=== PATIENT | male | born 1950 | race Caucasian/White ===

== ENCOUNTER 2024-02-08 09:14 | Outpatient (AMB) | payer MEDICARE, SELFPAY ==
[2024-02-08 09:29] VITALS: BP 126/60; PULSE 51; O2SAT 96; BMI 28.3
--- NOTE | 2024-02-08 09:29 | A.OFFVIS_ITS ---
Vital Signs 02/08/24 09:29 Height 5 ft 2 in Weight 154 lb 12.232 oz BMI 28.3 BP 126/60 Blood Pressure Location Lt brachial Position Sitting Pulse 51 Pulse Source Pulse Oximeter Pulse Oximetry (%) 96 Oxygen Delivery Method Room Air Intake Visit Reasons: RA/MR Recieved/lm Intake Note: Patient presents today for follow up on RA. He would like to renew Prednisone for his gout. He states it's both feet, whi9ch are feeling good today, but comes and goes. Allergies erythromycin base Allergy (Mild, Verified 02/08/24 09:36) Unknown ticlopidine [From Ticlid] Allergy (Mild, Verified 02/08/24 09:36) Rash cotrast dye Allergy (Severe, Uncoded 02/08/24 09:36) Anaphylaxis bee sting Allergy (Intermediate, Uncoded 02/08/24 09:36) Anaphylaxis HPI Comments Details: He is doing well. He is currently participating in a clinical trial with a cardiac device in place. He has improved angina and has been able to travel. His quality of life has improved substantially since participating in the clinical trial. He denies any recent flares of rheumatoid arthritis. He has been working on projects and feels well doing them. He had a gout flare causing swelling in his right 1st toe. Subsequently he has developed a nodule on his big toe. No other joints were involved. Review of Systems Const All systems reviewed & are unremarkable except as noted in HPI and below Physical Exam Vital Signs: Last Vital Signs Pulse 51 02/08/24 09:29 BP 126/60 02/08/24 09:29 Pulse Ox 96 02/08/24 09:29 Oxygen Delivery Method Room Air 02/08/24 09:29 BMI result Body Mass Index 28.3 Const Other: General: Comfortable CVS: RRR Respiratory: clear to auscultation bilaterally. Good respiratory effort Skin: No lesions seen MSK: No tenderness of any joints. No synovitis present. Shoulder abduction 110 degrees bilaterally. Good internal external rotation of shoulders. Knee flexion 120 degrees bilaterally. 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 No erythema. Assessment & Plan Assessment & Plan (1) Rheumatoid arthritis: Comment: 73-year-old male with history of seronegative rheumatoid arthritis initially presenting as PMR mimic with right MTP synovitis on initial presentation. He continued to develop polyarthralgias left MCP synovitis when prednisone was tapered when he was being treated for PMR initially. Hence swelling resolved on low-dose prednisone. He developed hyperglycemia (history of IDDM) on low-dose prednisone and was able to adjust via insulin pump. Methotrexate started August 2020 to 11/06/2021 due to pneumonitis on CT chest likely due to methotrexate toxicity. Humira started 06/06/2021 to 07/07/2021 but discontinued due to pneumonia and shingles. He has remained on hydroxychloroquine since 01/06/2022. He is also controlled on Actemra subcutaneous injection weekly. He remains in remission. He has been very functional also with recent possible placement of a device through involvement in a clinical trial for his severe cardiovascular disease. Code(s): M06.9 - Rheumatoid arthritis, unspecified Category: Medical Plan: Continue hydroxychloroquine 300 mg daily. He he reports he has an upcoming appointment for hydroxychloroquine surveillance. Continue Actemra 162 mg every other week Labs for drug monitoring on high-risk medication due today (2) Gout: Comment: with kian (new).hx CKD. 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 He is on allopurinol 100 mg daily. [facility] he should have been on allopurinol 300 mg daily. Due to history of CKD, we will need to up titrate slowly. Code(s): M10.9 - Gout, unspecified Category: Medical Plan: We will check uric acid level today and monthly with goal to up titrate allopurinol slowly Will obtain labs for drug monitoring this visit (3) Other halfway (current) drug therapy: Code(s): Z79.899 - Other exterminator helper (current) drug therapy Category: Medical Plan: See above (4) ILD (interstitial lung disease): Comment: He follows up with [facility] pulmonology Code(s): J84.9 - Interstitial pulmonary disease, unspecified Category: Medical Plan: I will obtain last pulmonology note Orders: Orders 2 Alanine Aminotransferase Today M06.9 - Rheumatoid arthritis, unspecified, Z79.899 - Other halfway (current) drug therapy Creatinine Today M06.9 - Rheumatoid arthritis, unspecified, Z79.899 - Other halfway (current) drug therapy Erythrocyte Sedimentation Rate Today M06.9 - Rheumatoid arthritis, unspecified T Spot TB Today M06.9 - Rheumatoid arthritis, unspecified, M10.9 - Gout, unspecified, Z79.899 - Other halfway (current) drug therapy Uric Acid 02/08/24 M06.9 - Rheumatoid arthritis, unspecified, Z79.899 - Other exterminator helper (current) drug therapy Uric Acid Today M06.9 - Rheumatoid arthritis, unspecified, Z79.899 - Other exterminator helper (current) drug therapy Uric Acid 04/08/24 M06.9 - Rheumatoid arthritis, unspecified, Z79.899 - Other exterminator helper (current) drug therapy Uric Acid 06/07/24 M06.9 - Rheumatoid arthritis, unspecified, Z79.899 - Other halfway (current) drug therapy Uric Acid 07/07/24 M06.9 - Rheumatoid arthritis, unspecified, Z79.899 - Other halfway (current) drug therapy Uric Acid 08/06/24 M06.9 - Rheumatoid arthritis, unspecified, Z79.899 - Other halfway (current) drug therapy Uric Acid 09/05/24 M06.9 - Rheumatoid arthritis, unspecified, Z79.899 - Other halfway (current) drug therapy Uric Acid 11/04/24 M06.9 - Rheumatoid arthritis, unspecified, Z79.899 - Other exterminator helper (current) drug therapy Uric Acid 12/04/24 M06.9 - Rheumatoid arthritis, unspecified, Z79.899 - Other halfway (current) drug therapy C Reactive Protein Today M06.9 - Rheumatoid arthritis, unspecified, Z79.899 - Other exterminator helper (current) drug therapy Aspartate Amino Transferase Today M06.9 - Rheumatoid arthritis, unspecified, Z79.899 - Other halfway (current) drug therapy Complete Blood Count Auto Diff Today M06.9 - Rheumatoid arthritis, unspecified, Z79.899 - Other halfway (current) drug therapy Hepatitis B,C Profile Today M06.9 - Rheumatoid arthritis, unspecified, Z79.899 - Other halfway (current) drug therapy Uric Acid Today M06.9 - Rheumatoid arthritis, unspecified, Z79.899 - Other exterminator helper (current) drug therapy Uric Acid 05/08/24 M06.9 - Rheumatoid arthritis, unspecified, Z79.899 - Other halfway (current) drug therapy Uric Acid 10/05/24 M06.9 - Rheumatoid arthritis, unspecified, Z79.899 - Other halfway (current) drug therapy Uric Acid 01/03/25 M06.9 - Rheumatoid arthritis, unspecified, Z79.899 - Other exterminator helper (current) drug therapy Lipid Panel Today M06.9 - Rheumatoid arthritis, unspecified, Z79.899 - Other halfway (current) drug therapy Medications: New Actemra (tocilizumab) Inject SQ every other week PA needed 162 mg (0.9 mL) subcut Q2W 1.8 mL 2RF NS Coding Level of Care Code Est Pt Level 4 (39103) Complex EM visit Add On G2211 Diagnoses Rheumatoid arthritis M06.9 Gout M10.9 Other exterminator helper (current) drug therapy Z79.899 ILD (interstitial lung disease) J84.9
== END 2024-02-08 10:21 | disposition home or self-care (01) ==
PROVIDERS: PCP Nurse Practitioner Family; Visit Provider Internal Medicine Rheumatology
DX: M06.9 Rheumatoid arthritis, unspecified (principal); M10.9 Gout, unspecified; Z79.899 Other long term (current) drug therapy; J84.9 Interstitial pulmonary disease, unspecified
CPT/HCPCS: 99214; G2211

== ENCOUNTER → 2024-02-08 09:14 | Outpatient (BNVA) | payer MEDICARE, SELFPAY | PROVIDERS: PCP Nurse Practitioner Family; Visit Provider Internal Medicine Rheumatology | DX: M06.9 Rheumatoid arthritis, unspecified (principal); M10.9 Gout, unspecified; J84.9 Interstitial pulmonary disease, unspecified; Z95.818 Presence of other cardiac implants and grafts; Z79.899 Other long term (current) drug therapy | CPT/HCPCS: 99212 ==

== ENCOUNTER 2024-02-12 08:27 | Outpatient (REF) | payer MEDICARE, SELFPAY ==
[2024-02-12 11:01] LABS: MANUAL DIFF FLAG NO
[2024-02-12 11:39] LABS: Basophils Percent Auto 0.5 % (0-2); Eosinophils Absolute Auto 0.1 X10*3/uL (0.0-0.4); Eosinophils Percent Auto 1.3 % (0-4); Hematocrit 40.3 % (42.0-52.0); Hemoglobin 13.8 g/dl (14.0-18.0); Imm Gran Abs Auto 0.04 X10*3/uL (0.00-0.03); Imm Gran Pct Auto 0.6 % (0.0-0.4); Lymphocytes Absolute Auto 1.2 X10*3/uL (1.2-4.9); Lymphocytes Percent Auto 19.9 % (20-40); Mean Corpuscular HGB Conc 34.2 g/dl (31.0-36.0); Mean Corpuscular Hemoglobin 30.9 pg (27.0-33.0); Mean Corpuscular Volume 90.2 fL (80.0-98.0); Mean Platelet Volume 11.7 fL (9.4-12.4); Monocytes Absolute Auto 0.5 X10*3/uL (0.1-1.2); Monocytes Percent Auto 8.4 % (2-11); Neutrophils Absolute Auto 4.3 x10*3/uL (2.0-8.3); Neutrophils Percent Auto 69.3 % (45-73); Platelet Count 160 X10*3/uL (160-400); Red Blood Count 4.47 X10*6/uL (4.60-5.80); Red Cell Distribution Width 12.9 % (11.0-16.0); White Blood Count 6.2 X10*3/uL (4.8-10.8)
[2024-02-12 11:53] LABS: Alanine Aminotransferase 39 U/L (0-40); Aspartate Amino Transferase 38 U/L (5-37); C Reactive Protein < 0.04 mg/dL (< or = 0.50); Cholesterol 110 mg/dL (<200); Estimated Glomerular Filt Rate 45; HDL Cholesterol 30 mg/dL (>40); LDL Cholesterol Calculated 60 mg/dL (<100); Triglycerides 100 mg/dL (<150)
[2024-02-12 12:15] LABS: HBS Num1 29.77 mIU/mL (0-7.99); HBc Num1 0.05 S/CO (0.00-0.79); HBsAGNum1 0.34 S/CO (0.00-0.99); Hepatitis B Core Antibody Nonreactive (Nonreactive); Hepatitis B Surface Antigen Negative (Negative); ~HepC Num1 0.08 S/CO (0.00-0.79); ~Hepatitis B Surface Antibody REACTIVE (Nonreactive); ~Hepatitis C Antibody Nonreactive (Nonreactive)
[2024-02-12 12:29] LABS: Erythrocyte Sedimentation Rate 10 MM/HR (0-15)
[2024-02-15 03:54] LABS: TS Negative Control Passed; TS Panel A 0; TS Panel B 1; TS Positive Control Passed; TSpotTB Negative (Negative)
== END 2024-02-12 08:28 | disposition home or self-care (01) ==
LOC: HO.WFDLDS 08:27
PROVIDERS: Visit Provider Internal Medicine Rheumatology
DX: M06.9 Rheumatoid arthritis, unspecified (principal); M10.9 Gout, unspecified; Z79.899 Other long term (current) drug therapy
CPT/HCPCS: 36415; 80061; 82565; 84450; 84460; 84550; 85025; 85652; 86140; 86481; 86704; 86706; 86803; 87340

== ENCOUNTER 2024-03-05 13:13 | Outpatient (REF) | payer MEDICARE, SELFPAY ==
[2024-03-05 18:23] LABS: Alanine Aminotransferase 39 U/L (0-40); Aspartate Amino Transferase 38 U/L (5-37); Uric Acid 5.2 mg/dL (3.4-7.0)
== END 2024-03-05 13:14 | disposition home or self-care (01) ==
LOC: HO.WFDLDS 13:13
PROVIDERS: Visit Provider Internal Medicine Rheumatology
DX: E11.42 Type 2 diabetes mellitus with diabetic polyneuropathy (principal); Z79.899 Other long term (current) drug therapy; M06.9 Rheumatoid arthritis, unspecified
CPT/HCPCS: 36415; 84450; 84460; 84550

== ENCOUNTER 2024-03-29 11:39 | Outpatient (REF) | payer MEDICARE, SELFPAY ==
[2024-03-29 14:00] LABS: MANUAL DIFF FLAG NO
[2024-03-29 14:05] LABS: Basophils Absolute Auto 0.1 X10*3/uL (0.0-0.2); Basophils Percent Auto 0.6 % (0-2); Eosinophils Absolute Auto 0.1 X10*3/uL (0.0-0.4); Eosinophils Percent Auto 1.4 % (0-4); Hematocrit 40.1 % (42.0-52.0); Hemoglobin 13.9 g/dl (14.0-18.0); Imm Gran Abs Auto 0.05 X10*3/uL (0.00-0.03); Imm Gran Pct Auto 0.6 % (0.0-0.4); Lymphocytes Absolute Auto 1.6 X10*3/uL (1.2-4.9); Lymphocytes Percent Auto 19.1 % (20-40); Mean Corpuscular HGB Conc 34.7 g/dl (31.0-36.0); Mean Corpuscular Hemoglobin 31.1 pg (27.0-33.0); Mean Corpuscular Volume 89.7 fL (80.0-98.0); Mean Platelet Volume 11.3 fL (9.4-12.4); Monocytes Absolute Auto 0.8 X10*3/uL (0.1-1.2); Monocytes Percent Auto 9.2 % (2-11); Neutrophils Absolute Auto 5.8 x10*3/uL (2.0-8.3); Neutrophils Percent Auto 69.1 % (45-73); Platelet Count 178 X10*3/uL (160-400); Red Blood Count 4.47 X10*6/uL (4.60-5.80); Red Cell Distribution Width 13.5 % (11.0-16.0); White Blood Count 8.4 X10*3/uL (4.8-10.8)
[2024-03-29 14:16] LABS: Uric Acid 4.7 mg/dL (3.4-7.0)
[2024-03-29 14:21] LABS: Blood Urea Nitrogen 28 mg/dL (9-16); Calcium 9.4 mg/dL (8.4-10.2); Estimated Glomerular Filt Rate 42
[2024-03-29 14:34] LABS: Parathyroid Hormone Intact 153.2 pg/mL (8.7-77.1)
[2024-03-29 14:37] LABS: Creatinine Urine 98.05 mg/dL; Microalbum/Creatinine Ratio Ur 108.1 ug/mg cr (<30); Total Protein Urine Random 22 mg/dL (<12)
[2024-03-29 14:40] LABS: Vitamin D 25-OH Total 24.6 ng/mL (>30)
== END 2024-03-29 11:40 | disposition home or self-care (01) ==
LOC: HO.WFDLDS 11:39
PROVIDERS: Internal Medicine Nephrology; Visit Provider Internal Medicine Rheumatology
DX: M06.9 Rheumatoid arthritis, unspecified (principal); Z79.899 Other long term (current) drug therapy; N18.32 Chronic kidney disease, stage 3b
CPT/HCPCS: 36415; 82043; 82306; 82310; 82565; 82570; 83970; 84156; 84520; 84550; 85025

== ENCOUNTER 2024-05-08 15:20 | Outpatient (REF) | payer MEDICARE, SELFPAY ==
--- OUTSIDE RECORDS SUMMARY | 2024-05-08 15:23 | XMS_ITS | Encounter Summary ---
Author Organization [facility], Address [address] [place] [address] Phone Care Team Providers Care Plant Operations Vice President Name Role Phone Christy Darden SHELLFISH CHECKER Primary Care Provider Encounter Details Date Type Department Care Team (Late st Contact Info) Description 02/28/2022 Documentation Only [facility], [address] [place] [phone] Christy Darden, DAI [address] [place] [address] Social History Tobacco Use Types Packs/Day Years Used Date Smoking Tobacco: Never Assessed Sex and Gender Information Value Date Recorded Sex Assigned at Male 03/23/2024 8:51 AM EST Legal Sex Male 2:33 PM EDT Gender Identity Male 03/23/2024 8:51 AM EST Sexual Orientation Straight 03/23/2024 8: 51 AM EST documented as of this encounter Plan of Treatment Upcoming Encounters Date Type Department Care Team (Late st Contact Info) Description 09/23/2024 8:30 AM EDT Office Visit [facility] [address] [phone] Jacqueline Mckenzie ARNP [address] [address] documented as of this encounter Visit Diagnoses Not on filedocumented in this encounter Care Teams Plant Operations Vice President Relationship Specialty Start Date End Date Christy Darden NP [address] [place] [address] PCP - General Nurse Practitioner 02/28/22 documented as of this encounter
--- OUTSIDE RECORDS SUMMARY | 2024-05-08 15:23 | XMS_ITS | Encounter Summary ---
Author Organization [facility], Address [address] [place] [address] Phone Care Team Providers Care Skip Hoist Engineer Name Role Phone Christy Darden NP Primary Care Provider Encounter Details Date Type Department Care Team (Late st Contact Info) Description 03/07/2022 Documentation Only [facility], [address] [facility] [place] [phone] Maciej Sauceda MD [address] [facility] [place] [phone] Social History Tobacco Use Types Packs/Day Years [...] Visit [facility] [address] [phone] Jacqueline Mckenzie ARNP [address] [phone] documented as of this encounter Visit Diagnoses Not on filedocumented in this encounter Care Teams Skip Hoist Engineer Relationship Specialty Start Date End Date Christy Darden NP [address] [place] [address] PCP - General Nurse Practitioner 02/28/22 documented as of this encounter
--- OUTSIDE RECORDS SUMMARY | 2024-05-08 15:23 | XMS_ITS | Clinical Summary ---
Author Organization [facility] Address [address] [address] Phone Care Team Providers Care Economics Instructor Name Role Phone Christy Darden NP Primary Care Provider Allergies Active Allergy Reactions Criticality Noted Date Comments Bee Venom Anaphylaxis High 03/07/2022 Other reaction(s): anaphalaxis Erythromycin Other (see comments) 05/19/2017 Eye swelling Other reaction(s): eye swelling Worsened pink eye Iodinated Contrast Media Anaphylaxis High 03/07/2022 Other reaction(s): anaphalaxis Other Anaphylaxis High 05/19/2017 Bee stings Ticlopidine Rash Low 03/07/2022 Other reaction(s): rash Medications allopurinol (ZYLOPRIM) 100 MG tablet Take 100 mg by mouth 1 (one) time each day 2 Active Eliquis 5 MG tablet 2 Active atorvastatin (LIPITOR) 80 MG tablet Take 80 mg by mouth every night 2 Active clopidogrel (PLAVIX) 75 MG tablet Take 75 mg by mouth 1 (one) time each day 2 Active hydroxychloroqui ne (PLAQUENIL) 200 MG tablet Take 150 mg by mouth 1 (one) time each day 2 Active HumaLOG 100 UNIT/ML solution 2 Active nitroglycerin (NITROSTAT) 0.4 MG SL tablet TAKE 1 TABLET BY MOUTH EVERY 5 MINUTES NEEDED FOR CHEST PAIN 2 Active acetaminophen (TYLENOL) 325 MG tablet Take by mouth every 6 (six) hours if needed for mild pain Active amLODIPine (NORVASC) 10 MG tablet Take 10 mg by mouth 1 (one) time each day Active EPINEPHrine (EPIPEN) 0.3 MG/0.3ML injection syringe Inject 1 Syringe into the shoulder, thigh, or buttocks 1 (one) time Active Matlock-3 Fatty Acids (Fish Oil) 1200 MG capsule delayed-release Take by mouth Active carvedilol (COREG) 12.5 MG tablet Take 1 tablet (12.5 mg total) by mouth in the morning and 1 tablet (12.5 mg total) in the evening. Take with meals. 60 tablet 11 2 Active isosorbide mononitrate (IMDUR) 60 MG 24 hr tablet Take 90 mg by mouth 1 (one) time each day 3 Active ranolazine (RANEXA) 500 MG 12 hr tablet Take 500 mg by mouth 1 (one) time 4 Active eplerenone (INSPRA) 25 MG tablet Take 25 mg by mouth 1 (one) time each day Active Tocilizumab (Actemra) 162 MG/0.9ML solution prefilled syringe Inject under the skin Active Active Problems Problem Noted Date Diagnosed Date Arthropathy of spinal facet joint 01/06/2023 01/06/2023 Atherosclerosis of aorta 01/06/2023 023 Atrial fibrillation 01/06/2023 01/06/2023 Diverticular disease of colon 01/06/2023 Gastroesophageal reflux disease 01/06/2023 01/06/2023 Hemangioma of liver 01/06/2023 01/06/2023 Impingement syndrome of shoulder region 01/07/2001/06/2023 Impotence of organic origin 01/06/202312/19 Neurogenic claudication 01/06/2023 01/07/20 Obstructive sleep apnea syndrome 01/06/2023 01/06/2023 Rheumatoid arthritis 01/06/2023 01/06/2023 Sacroiliac disorder 01/06/2023 01/06/2023 Spermatocele 01/06/2023 01/06/2023 Tinea cruris 01/06/2023 01/06/2023 Type 2 diabetes mellitus with peripheral angiopa thy 01/06/2023 01/06/2023 Microalbuminuria 03/07/2022 Nephrolithiasis 03/07/2022 Cyst of kidney 03/07/2022 Type 2 diabetes mellitus with diabetic nephropat hy 03/07/2022 Stage 3 chronic kidney disease 03/07/2022 Hypertension 03/07/2022 Insulin pump present 05/12/2017 01/06/2023 Overview (01/06/2023): Started Omnipod and pump therapy 09/18/2014 Last Assessment & Plan: New insulin pump setting Time Basal Rates? Time ICR Time ISF Time Target IOB 12am 2.4u/hr 12am 7 12 am 30 12 am 100mg/dl 4hrs ?TOTAL 57.6u/day? We discussed insulin pump adjustments today, in particular Vince is encouraged to raise his basal rate to 2.4u/hr which is a 20% increase, he is also advised to monitor mealtime insulin response and adjust I:C ratio if needed or manually overestimate carb counts at meals to receive increase in dosage for a time Sensor glucose data reviewed, pattern of increase variability and higher readings overall, we discussed reasons for this and that this is likely temporary Advised to contact us with any questions regarding glucose patterns Metabolic syndrome 05/12/2017 01/06/2023 Type 2 diabetes mellitus 05/12/2017 023 Overview (01/06/2023): Last Assessment & Plan: A1c indicates excellent control overall but CGM patterns indicate worsened glucose control in the recent past, likely related to recent steroid therapy and increased stressors from recent surgery/health issues, Vince has also been less active Unfortunately Vince did not tolerate SGLT2i therapy in the past Vince is dealing with likely depressive symptoms related to his heart health issues, we discussed this at length today and how this may affect his motivation for activity, this may also affect diabetes self management though this does not seem to be the case at this time, Vince has discussed this with his PCP Vince is reassured that despite more recent elevations in glucose which are largely explainable, his overall control remains very good and today's adjustment to insulin infusion settings will hopefully help him return to more stable control Vince will return to meet with our team every 3 months as he is on insulin pump therapy and on Medicare, he is encouraged to reach out to me with any questions or concerns Coronary arteriosclerosis 08/24/20102022 Hyperlipidemia 08/24/2010 01/06/2023 Encounters Date Type Department Care Team Description 03/25/2024 9:15 AM EST Office Visit [facility] [address] [facility] [address] [place] [address] Jacqueline Mckenzie ARNP Stage 3b chronic kidney disease (HCC) (Primary Dx); Hypertension; Microalbuminuria; Nephrolithiasis 03/23/2024 Travel 02/18/2024 Orders Only [facility] [address] [place] [phone] Jacqueline Mckenzie ARNP Stage 3b chronic kidney disease (HCC); Hypertension from Last 3 Months Immunizations Name Administration Dates Next Due DTaP 09/07/2015 Hep A, Unspecified 04/28/2009 Hepatitis A 11/12/2009 Influenza (IM) Preservative Free 12/28/2015 Influenza Whole 01/20/2009 Influenza, Trivalent, Adjuvanted 12/24/2020,10/2018 Influenza, Unspecified 01/06/2022,2020,01/08/2020,01/08/2020 ,02/08/2019,03/27/2018,12/28/2015, 5 Pfizer SARS-COV-2 02/22/2021,07/15/2020,06/11/19 21 Pneumococcal Conjugate 13-Valent 03/31/2017 Pneumococcal Polysaccharide 03/14/2015 Shingrix 03/12/2013 Tdap 04/28/2009 Typhoid, Unspecified 04/28/2009 Family History Medical History Relation Comments Diabetes Father Heart disease Father Hypertension Father Cancer Mother Relation Status Comments Father Mother Social History Tobacco Use Types Packs/Day Years Used Date Smoking Tobacco: Never Smokeless Tobacco: Never Tobacco Cessation:Counseling Given: Not Answered Alcohol Use Standard Drinks/Week Comments Yes 0 (1 standard drink = 0.6 oz pur e alcohol) Sex and Gender Information Value Date Recorded Sex Assigned at Male 03/23/2024 8:51 AM EST Legal Sex Male 2:33 PM EDT Gender Identity Male 03/23/2024 8:51 AM EST Sexual Orientation Straight 03/23/2024 8: 51 AM EST Last Filed Vital Signs Vital Sign Reading Time Taken Comments Blood Pressure 114/60 03/25/2024 9:48 AM EST Pulse 49 03/25/2024 9:23 AM EST Temperature - - Respiratory Rate - - Oxygen Saturation 97% 03/25/2024 9:23 AM EST Inhaled Oxygen Concentration - - Weight 70.3 kg (155 lb) 03/25/2024 9:23 AM EST Height - - Body Mass Index - - Plan of Treatment Upcoming Encounters Date Type Department Care Team (Late st Contact Info) Description 09/23/2024 8:30 AM EDT Office Visit [facility] [address] [phone] Jacqueline Mckenzie ARNP [address] [phone] Health Maintenance Due Date Last Done Comments Colorectal Cancer Screening: Annual FOBT 2000 Colorectal Cancer Screening: Colonoscopy 2000 Colorectal Cancer Screening: Sigmoidoscopy 2000 Pneumococcal Vaccine: 65+ Years (3 of 3 - PPSV23 or PCV20) 03/14/2020 03/31/2017, 03/14/2015 Diabetes: Ophthalmology Exam 03/07/2022 Diabetes: Pedal Pulse Checked 03/07/2022 Diabetes: Sensory Foot Exam 03/07/2022 Diabetes: Visual Foot Exam 03/07/2022 Influenza Vaccine (#1) 2023 2, 12/24/2020, 12/24/2020, Additional history exists Diabetes: Hemoglobin A1C 06/02/2024 024, 12/09/2022, 02/18/2022 Hepatitis B Vaccine Aged Out No longe r eligible based on patient's age to complete this topic Insurance MEDICARE [facility] MEDICARE [facility] MEDICARE [facility] Care Teams Economics Instructor Relationship Specialty Start Date End Date Christy Darden NP [address] [place] [address] PCP - General Nurse Practitioner 02/28/22
--- OUTSIDE RECORDS SUMMARY | 2024-05-08 15:23 | XMS_ITS | Encounter Summary ---
Author Organization [facility], Address [address] [place] [address] Phone Care Team Providers Care Dry End Operator Name Role Phone Christy Darden BLANKING PRESS OPERATOR Primary Care Provider [phone] Encounter Details Date Type Department Care Team (Late st Contact Info) Description 02/28/2022 Documentation Only [facility], [address] [place] [phone] Christy Darden, DAI [address] [place] [address] Social History Tobacco Use Types Packs/Day Years [...] Visit [facility] [address] [phone] Jacqueline Mckenzie ARNP [address] [phone] documented as of this encounter Visit Diagnoses Not on filedocumented in this encounter Care Teams Dry End Operator Relationship Specialty Start Date End Date Christy Darden NP [address] [place] [address] PCP - General Nurse Practitioner 02/28/22 documented as of this encounter
--- OUTSIDE RECORDS SUMMARY | 2024-05-08 15:23 | XMS_ITS | Encounter Summary ---
Author Organization [facility], Address [address] [place] [address] Phone Care Team Providers Care Restaurant Shift Supervisor Name Role Phone Christy Darden ALIGNER BARREL AND RECEIVER Primary Care Provider Encounter Details Date Type Department Care Team (Late st Contact Info) Description 02/28/2022 Documentation Only [facility], [address] [place] [phone] Christy Darden, DAI [address] [place] [address] Social History Tobacco Use Types Packs/Day Years [...] Visit [facility] [address] [phone] Jacqueline Mckenzie ARNP [address] [phone] documented as of this encounter Visit Diagnoses Not on filedocumented in this encounter Care Teams Restaurant Shift Supervisor Relationship Specialty Start Date End Date Christy Darden NP [address] [place] [address] PCP - General Nurse Practitioner 02/28/22 documented as of this encounter
[2024-05-08 18:26] LABS: Uric Acid 4.3 mg/dL (3.4-7.0)
== END 2024-05-08 15:21 | disposition home or self-care (01) ==
LOC: HO.WFDLDS 15:20
PROVIDERS: Visit Provider Internal Medicine Rheumatology
DX: M06.9 Rheumatoid arthritis, unspecified (principal); Z79.899 Other long term (current) drug therapy
CPT/HCPCS: 36415; 84550

== ENCOUNTER 2024-05-14 09:15 | Outpatient (AMB) | payer MEDICARE, SELFPAY ==
--- NOTE | 2024-05-14 09:16 | A.OFFVIS_ITS ---
Vital Signs 05/14/24 09:17 Height 5 ft 2 in Weight 153 lb 3.54 oz BMI 28.0 BP 130/90 H Blood Pressure Location Lt brachial Position Sitting Pulse 55 Pulse Oximetry (%) 98 Intake Visit Reasons: 3 mo follow up Allergies erythromycin base Allergy (Mild, Verified 05/14/24 09:17) Unknown ticlopidine [From Ticlid] Allergy (Mild, Verified 05/14/24 09:17) Rash cotrast dye Allergy (Severe, Uncoded 02/08/24 09:36) Anaphylaxis bee sting Allergy (Intermediate, Uncoded 02/08/24 09:36) Anaphylaxis HPI HPI 3 mo follow up: Details: He had OCT exam few weeks ago 3 weeks. He has an appointment this PM for VF. He has swelling of his left CMC and triggering of left thumb for a few weeks. He has not been self medicating. He has a splint at home but has not been using it. Physical Exam Vital Signs: Last Vital Signs Pulse 55 05/14/24 09:17 BP 130/90 H 05/14/24 09:17 Pulse Ox 98 05/14/24 09:17 BMI result Body Mass Index 28.0 Const Other: General: Comfortable CVS: RRR Respiratory: clear to auscultation bilaterally. Good respiratory effort Skin: No lesions seen MSK: Left CMC synovitis and squaring present. Tender left CMC on palpation. Triggering of left thumb present with tenderness on palmar aspect of MCP without nodule palpated. Shoulder abduction 110 degrees bilaterally. Good internal external rotation of shoulders. Knee flexion 120 degrees bilaterally. He has tophus on his right interphalangeal joint of his 1st toe with slight erythema. Assessment & Plan Assessment & Plan (1) Rheumatoid arthritis: Comment: 73-year-old male with history of seronegative rheumatoid arthritis initially presenting as PMR mimic with right MTP synovitis on initial presentation. He continued to develop polyarthralgias left MCP synovitis when prednisone was tapered when he was being treated for PMR initially. Hence swelling resolved on low-dose prednisone. He developed hyperglycemia (history of IDDM) on low-dose prednisone and was able to adjust via insulin pump. Methotrexate started August 2020 to 11/06/2021 due to pneumonitis on CT chest likely due to methotrexate toxicity. Humira started 06/06/2021 to 07/07/2021 but discontinued due to pneumonia and shingles. He has remained on hydroxychloroquine since 01/06/2022. He is also controlled on Actemra subcutaneous injection weekly. He remains in remission on current regimen. Code(s): M06.9 - Rheumatoid arthritis, unspecified Category: Medical Qualifiers: Rheumatoid arthritis location: multiple sites Rheumatoid factor presence: without rheumatoid factor Qualified Code(s): M06.09 - Rheumatoid arthritis without rheumatoid factor, multiple sites Plan: Continue hydroxychloroquine 300 mg daily. He he reports he has an upcoming appointment for hydroxychloroquine surveillance visual field test this afternoon. He had abnormal OCT examined was diagnosed with glaucoma 04/25/2024. He will request clinic report from today's exam to be sent to my office. Continue Actemra 162 mg every other week Labs for drug monitoring on high-risk medication due today. I will be ordering fasting lipid panel next visit for drug monitoring on Actemra. Return to clinic in 3 months (2) Gout: Comment: with tophus right 1st toe. Risk factor: hx CKD. 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 He is on allopurinol 350 mg daily recently increased from 300 mg daily. He was having recurrent flares on allopurinol 300 mg daily despite uric acid acid level being 4.7 then 4.3. I will aim to have uric acid level goal closer to 4 for patient. Code(s): M10.9 - Gout, unspecified Category: Medical Qualifiers: Gout site: toe Gout etiology: due to renal impairment Chronicity: chronic Laterality: right Presence of tophus: with tophus Qualified Code(s): M1A.3711 - Chronic gout due to renal impairment, right ankle and foot, with top hus (tophi) Plan: Continue allopurinol 350 mg daily I will check uric acid level next visit Requesting recent labs that he had from [facility] Return to clinic in 3 months (3) Trigger finger of left thumb: Code(s): M65.312 - Trigger thumb, left thumb Category: Medical Plan: OT prescribed for exercise program and splinting at night (4) Arthritis of carpometacarpal (CMC) joint of left thumb: Comment: Discussed diagnosis, natural course and conservative management Code(s): M18.12 - Unilateral primary osteoarthritis of first carpometacarpal joint, left hand Category: Medical Plan: He will apply diclofenac gel 1% every 4-6 hours prn He will ice affected area twice a day Prescription for CMC brace given to patient OT prescribed Return to clinic in 3 months (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 PFT 05/2022 mild restrictive ventilatory defect, and mild diffusion capacity impairment consistent with ILD. 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 He follows up with [facility] proof operator Dr. Carlitos Phelan. Code(s): J84.9 - Interstitial pulmonary disease, unspecified Category: Medical Plan: He has an upcoming follow-up with pulmonology 05/2024. Orders: Orders Alanine Aminotransferase Today Z79.60 - ferry terminal supervisor (current) use of unspecified immunomodulators and immunosuppressants Aspartate Amino Transferase Today Z79.60 - skilled nursing (current) use of unspecified immunomodulators and immunosuppressants C Reactive Protein Today Z79.899 - Other group home (current) drug therapy XR foot RT min 3V Today M10.9 - Gout, unspecified OT Evaluation and Treatment Today M18.12 - Unilateral primary osteoarthritis of first carpometacarpal joint, left hand, M65.312 - Trigger thumb, left thumb Medications: New arm brace (Wrist Brace) As directed Left cmc spint, custom Dx: osteoarthritis left cmc 1 ea 0RF Refilled Actemra (tocilizumab) Inject SQ every other week PA approved. 162 mg (0.9 mL) subcut Q2W 1.8 mL 2RF NS Coding Level of Care Code Est Pt Level 4 (88801) Complex EM visit Add On G2211 Diagnoses Rheumatoid arthritis of multiple sites with negative rheumatoid factor M06.09 Rheumatoid arthritis location: multiple sites Rheumatoid factor presence: without rheumatoid factor Chronic gout due to renal impairment involving toe of right foot with tophus M1A.3711 Gout site: toe Gout etiology: due to renal impairment Chronicity: chronic Laterality: right Presence of tophus: with tophus Trigger finger of left thumb M65.312 Arthritis of carpometacarpal (CMC) joint of left thumb M18.12 Other intermodal owner operator truck driver (current) drug therapy Z79.899 ILD (interstitial lung disease) J84.9 Time Spent (min) 30
[2024-05-14 09:17] VITALS: BP 130/90; PULSE 55; O2SAT 98; BMI 28.0
--- OUTSIDE RECORDS SUMMARY | 2024-05-14 10:06 | XMS_ITS | Encounter Summary ---
Author Organization [facility] [place], Address [address] [place] [address] Phone Care Team Providers Care President Commercial Bank Name Role Phone Christy Darden TWISTER FRAME TENDER Primary Care Provider [phone] Encounter Details Date Type Department Care Team (Late st Contact Info) Description 02/28/2022 Documentation Only [facility] [place], [address] [place] [phone] Christy Darden, DAI [address] [place] [address] Social History Tobacco Use Types Packs/Day Years [...] Visit [facility] [address] [phone] Jacqueline Mckenzie ARNP [address] [address] documented as of this encounter Visit Diagnoses Not on filedocumented in this encounter Care Teams President Commercial Bank Relationship Specialty Start Date End Date Christy Darden NP [address] [place] [address] PCP - General Nurse Practitioner 02/28/22 documented as of this encounter
--- OUTSIDE RECORDS SUMMARY | 2024-05-14 10:07 | XMS_ITS | Encounter Summary ---
Author Organization [facility] [place], Address [address] [place] [address] Phone Care Team Providers Care Field Technical Assistant Name Role Phone Christy Darden SCRAPER MEAT Primary Care Provider Encounter Details Date Type Department Care Team (Late st Contact Info) Description 02/28/2022 Documentation Only [facility] [place], [address] [place] [phone] Christy Darden, DAI [address] [place] [address] Social History Tobacco Use Types Packs/Day Years [...] Visit [facility] [address] [phone] Jacqueline Mckenzie ARNP [address] [phone] documented as of this encounter Visit Diagnoses Not on filedocumented in this encounter Care Teams Field Technical Assistant Relationship Specialty Start Date End Date Christy Darden NP [address] [place] [address] PCP - General Nurse Practitioner 02/28/22 documented as of this encounter
--- OUTSIDE RECORDS SUMMARY | 2024-05-14 10:07 | XMS_ITS | Clinical Summary ---
Author Organization [facility] Address [address] [address] Phone Care Team Providers Care Learning And Development Intern Name Role Phone Christy Darden NP Primary [...] thigh, or buttocks 1 (one) time Active [place]-3 Fatty Acids (Fish Oil) 1200 MG capsule [...] Office Visit [facility] [address] [facility] [address] [place] [address] Jacqueline Mckenzie ARNP Stage 3b chronic kidney disease (HCC) (Primary Dx); Hypertension; Microalbuminuria; Nephrolithiasis 03/23/2024 Travel 02/18/2024 Orders Only [facility] [address] [place] [phone] Jacqueline Mckenzie ARNP Stage 3b chronic kidney [...] Visit [facility] [address] [phone] Jacqueline Mckenzie ARNP [address] [phone] Health Maintenance Due Date Last Done Comments [...] age to complete this topic Insurance MEDICARE [facility] MEDICARE [facility] MEDICARE [facility] Care Teams Learning And Development Intern Relationship Specialty Start Date End Date Christy Darden NP [address] [place] [address] PCP - General Nurse Practitioner 02/28/22
--- OUTSIDE RECORDS SUMMARY | 2024-05-14 10:07 | XMS_ITS | Encounter Summary ---
Author Organization [facility] [place], Address [address] [place] [address] Phone Care Team Providers Care Welding Machine Operator Arc Name Role Phone Christy Darden MANAGER PARKING Primary Care Provider Encounter Details Date Type Department Care Team (Late st Contact Info) Description 02/28/2022 Documentation Only [facility] [place], [address] [place] [phone] Christy Darden, DAI [address] [place] [address] Social History Tobacco Use Types Packs/Day Years [...] Visit [facility] [address] [phone] Jacqueline Mckenzie ARNP [address] [address] documented as of this encounter Visit Diagnoses Not on filedocumented in this encounter Care Teams Welding Machine Operator Arc Relationship Specialty Start Date End Date Christy Darden NP [address] [place] [address] PCP - General Nurse Practitioner 02/28/22 documented as of this encounter
--- OUTSIDE RECORDS SUMMARY | 2024-05-14 10:07 | XMS_ITS | Encounter Summary ---
Author Organization [facility] [place], Address [address] [place] [address] Phone Care Team Providers Care Sap Bi Developer Name Role Phone Christy Darden NP Primary Care Provider Encounter Details Date Type Department Care Team (Late st Contact Info) Description 03/07/2022 Documentation Only [facility] [place], [address] [facility] [place] [phone] Maciej Sauceda MD [address] [facility] [place] [phone] Social History Tobacco Use Types Packs/Day Years [...] Visit [facility] [address] [phone] Jacqueline Mckenzie ARNP [address] [phone] documented as of this encounter Visit Diagnoses Not on filedocumented in this encounter Care Teams Sap Bi Developer Relationship Specialty Start Date End Date Christy Darden NP [address] [place] [address] PCP - General Nurse Practitioner 02/28/22 documented as of this encounter
== END 2024-05-14 09:57 | disposition home or self-care (01) ==
PROVIDERS: PCP Nurse Practitioner Family; Visit Provider Internal Medicine Rheumatology
DX: M06.09 Rheumatoid arthritis without rheumatoid factor, multiple sites (principal); M1A.37 Chronic gout due to renal impairment, ankle and foot; M65.312 Trigger thumb, left thumb; M18.12 Unilateral primary osteoarthritis of first carpometacarpal joint, left hand; Z79.899 Other long term (current) drug therapy; J84.9 Interstitial pulmonary disease, unspecified
CPT/HCPCS: 99214; G2211

== ENCOUNTER → 2024-05-14 09:15 | Outpatient (BNVA) | payer MEDICARE, SELFPAY | PROVIDERS: PCP Nurse Practitioner Family; Visit Provider Internal Medicine Rheumatology | DX: M06.09 Rheumatoid arthritis without rheumatoid factor, multiple sites (principal); M1A.37 Chronic gout due to renal impairment, ankle and foot; M65.312 Trigger thumb, left thumb; M18.12 Unilateral primary osteoarthritis of first carpometacarpal joint, left hand; J84.9 Interstitial pulmonary disease, unspecified; Z79.60 Long term (current) use of unspecified immunomodulators and immunosuppressants; Z79.899 Other long term (current) drug therapy | CPT/HCPCS: 99212 ==

== ENCOUNTER 2024-06-12 09:19 | Outpatient (REF) | payer MEDICARE, SELFPAY ==
[2024-06-12 11:24] LABS: Alanine Aminotransferase 44 U/L (0-40); Aspartate Amino Transferase 40 U/L (5-37); Uric Acid 4.3 mg/dL (3.4-7.0)
== END 2024-06-12 09:20 | disposition home or self-care (01) ==
LOC: HO.WFDLDS 09:19
PROVIDERS: Visit Provider Internal Medicine Rheumatology
DX: M06.9 Rheumatoid arthritis, unspecified (principal); Z79.60 Long term (current) use of unspecified immunomodulators and immunosuppressants; Z79.899 Other long term (current) drug therapy
CPT/HCPCS: 36415; 84450; 84460; 84550; 86140

== ENCOUNTER 2024-07-11 11:33 | Outpatient (REF) | payer MEDICARE, SELFPAY ==
--- NOTE | ~2024-07-11 | XR_ITS ---
EXAMINATION: XR FOOT 3 OR MORE VIEWS RIGHT HISTORY: M10.9 - Gout, unspecified COMPARISON: There are no prior studies available for comparison. FINDINGS: Three views of the right foot are submitted. The bones are osteopenic. There is no fracture or dislocation. The joint spaces are preserved. No erosions are seen. There is mild soft tissue swelling involving the MTP and interphalangeal joints of the great toe. There are vascular calcifications. XR/XR foot RT min 3V IMPRESSION: Osteopenia. Mild soft tissue swelling involving the MTP and interphalangeal joints of the great toe. No erosions are identified. Electronically signed by: Dany Hatch MD 07/12/2024 03:40 PM EDT
--- OUTSIDE RECORDS SUMMARY | 2024-07-11 13:54 | XMS_ITS | Clinical Summary ---
Author Organization [facility] Address [address] [address] Phone Care Team Providers Care Kiln Car Repairer Name Role Phone Christy Darden NP Primary [...] thigh, or buttocks 1 (one) time Active [place]-3 Fatty Acids (Fish Oil) 1200 MG capsule [...] concerns Coronary arteriosclerosis 08/24/20102022 Hyperlipidemia 08/24/2010 01/06/2023 Immunizations Immunization Administration Dates Next Due DTaP 09/07/2015 Hep [...] Office Visit [facility] [address] [phone] Jacqueline Mckenzie ARNP [address] [address] Health Maintenance Due Date Last Done Comments Colorectal Cancer Screening: Annual FOBT 2000 Colorectal Cancer Screening: Colonoscopy 2000 Colorectal Cancer Screening: Sigmoidoscopy 2000 Pneumococcal Vaccine: 50+ Years (3 of 3 - PPSV23, PCV20 or PCV21) 03/14/2020 03/31/2017, 03/14/2015 Diabetes: Ophthalmology Exam 03/07/2022 Diabetes: Pedal Pulse Checked 03/07/2022 Diabetes: Sensory Foot Exam 03/07/2022 Diabetes: Visual Foot Exam 03/07/2022 Diabetes: Hemoglobin A1C 06/02/2024 024, 12/09/2022, 02/18/2022 Influenza Vaccine (Season Ended) 2024 01/06/2022, 12/24/2020, 12/24/2020, Additional history exists Hepatitis B Vaccine Aged Out No longe r eligible based on patient's age to complete this topic Insurance Medicare [facility] Medicare [facility] Medicare [facility] Care Teams Kiln Car Repairer Relationship Specialty Start Date End Date Christy Darden NP [address] [place] [address] PCP - General Nurse Practitioner 02/28/22
--- OUTSIDE RECORDS SUMMARY | 2024-07-11 13:54 | XMS_ITS | Encounter Summary ---
Author Organization [facility] [place], Address [address] [place] [address] Phone Care Team Providers Care Community Specialist Name Role Phone Christy Darden NP Primary Care Provider [phone] Encounter Details Date Type Department Care Team (Late st Contact Info) Description 03/07/2022 Documentation Only [facility] [place], [address] [facility] [place] [phone] Maciej Sauceda MD [address] [facility] [place] [phone] Social History Tobacco Use Types Packs/Day Years [...] Visit [facility] [address] [phone] Jacqueline Mckenzie ARNP [address] [address] documented as of this encounter Visit Diagnoses Not on filedocumented in this encounter Care Teams Community Specialist Relationship Specialty Start Date End Date Christy Darden NP [address] [place] [address] PCP - General Nurse Practitioner 02/28/22 documented as of this encounter
--- OUTSIDE RECORDS SUMMARY | 2024-07-11 13:54 | XMS_ITS | Encounter Summary ---
Author Organization [facility] [place], Address [address] [place] [address] Phone Care Team Providers Care Health And Safety Instructor Name Role Phone Christy Darden RETAIL DIRECTOR Primary Care Provider [phone] Encounter Details Date Type Department Care Team (Late st Contact Info) Description 02/28/2022 Documentation Only [facility] [place], [address] [place] [phone] Christy Darden, DAI [address] [place] [address] Social History Tobacco Use Types Packs/Day Years [...] Visit [facility] [address] [phone] Jacqueline Mckenzie ARNP [address] [phone] documented as of this encounter Visit Diagnoses Not on filedocumented in this encounter Care Teams Health And Safety Instructor Relationship Specialty Start Date End Date Christy Darden NP [address] [place] [address] PCP - General Nurse Practitioner 02/28/22 documented as of this encounter
--- OUTSIDE RECORDS SUMMARY | 2024-07-11 13:54 | XMS_ITS | Encounter Summary ---
Author Organization [facility] [place], Address [address] [place] [address] Phone Care Team Providers Care Child Care Name Role Phone Christy Darden SECURITY MONITOR Primary Care Provider [phone] Encounter Details Date Type Department Care Team (Late st Contact Info) Description 02/28/2022 Documentation Only [facility] [place], [address] [place] [phone] Christy Darden, DAI [address] [place] [address] Social History Tobacco Use Types Packs/Day Years [...] Visit [facility] [address] [phone] Jacqueline Mckenzie ARNP [address] [address] documented as of this encounter Visit Diagnoses Not on filedocumented in this encounter Care Teams Child Care Relationship Specialty Start Date End Date Christy Darden NP [address] [place] [address] PCP - General Nurse Practitioner 02/28/22 documented as of this encounter
--- OUTSIDE RECORDS SUMMARY | 2024-07-11 13:54 | XMS_ITS | Encounter Summary ---
Author Organization [facility] [place], Address [address] [place] [address] Phone Care Team Providers Care Personnel Training Officer Name Role Phone Christy Darden LEGAL OFFICE ADMINISTRATOR Primary Care Provider Encounter Details Date Type Department Care Team (Late st Contact Info) Description 02/28/2022 Documentation Only [facility] [place], [address] [place] [phone] Christy Darden, DAI [address] [place] [address] Social History Tobacco Use Types Packs/Day Years [...] Visit [facility] [address] [phone] Jacqueline Mckenzie ARNP [address] [address] documented as of this encounter Visit Diagnoses Not on filedocumented in this encounter Care Teams Personnel Training Officer Relationship Specialty Start Date End Date Christy Darden NP [address] [place] [address] PCP - General Nurse Practitioner 02/28/22 documented as of this encounter
[2024-07-11 14:48] LABS: Alanine Aminotransferase 58 U/L (0-40); Alkaline Phosphatase 119 U/L (39-117); Aspartate Amino Transferase 56 U/L (5-37); Bilirubin Direct 0.3 mg/dL (0.0-0.5); Bilirubin Total 0.8 mg/dL (0.0-1.0); Total Protein 6.6 g/dL (6.5-8.0); Uric Acid 5.2 mg/dL (3.4-7.0)
== END 2024-07-11 11:34 | disposition home or self-care (01) ==
LOC: HO.WFDLDS 11:33
PROVIDERS: PCP Nurse Practitioner Family; Visit Provider Internal Medicine Rheumatology
DX: M06.9 Rheumatoid arthritis, unspecified (principal); Z79.899 Other long term (current) drug therapy; R74.01 Elevation of levels of liver transaminase levels; M10.9 Gout, unspecified
CPT/HCPCS: 36415; 73630; 80076; 84550

== ENCOUNTER → 2024-07-11 12:07 | Outpatient (BNV) | payer MEDICARE, SELFPAY | PROVIDERS: PCP Nurse Practitioner Family; Visit Provider Radiology Diagnostic Radiology | DX: M10.9 Gout, unspecified (principal) | CPT/HCPCS: 73630 ==

== ENCOUNTER 2024-07-23 08:55 | Outpatient (REF) | payer MEDICARE, SELFPAY ==
--- NOTE | ~2024-07-23 | US_ITS ---
EXAMINATION: US ABDOMEN LIMITED WITH LIVER ELASTOGRAPHY HISTORY: R74.01 - Elevation of levels of liver transaminase levels TECHNIQUE: Real-time grayscale ultrasound imaging of the right upper quadrant was performed and images were reviewed. COMPARISON: There are no prior studies for comparison. FINDINGS: Liver: The right lobe of the liver measures 8.4 cm in size. The left lobe of the liver measures 11.8 cm in size. The liver demonstrates coarsened echotexture and a lobulated contour, suggestive of cirrhosis. No focal mass or intrahepatic biliary ductal dilatation is identified. There is normal hepatopedal flow in the portal vein. Ultrasound elastography of the liver was performed with 10 separate measurements of the liver parenchyma with the patient in the supine position. Measurements were obtained approximately 2 cm below Carlos's capsule and perpendicular to the capsule. Images are of satisfactory quality. The median shear wave velocity is 1.65 m/s. The interquartile range/median (IQR/median) is 0.05. Gallbladder and biliary tree: The gallbladder is surgically absent. The common bile duct is normal in caliber measuring 5 mm. Right Kidney: The right kidney measures 11.4 cm in length. There is a 1.8 x 1.1 x 1.5 cm parapelvic cyst. Punctate echogenic foci may represent cortical calcifications. There is no hydronephrosis. Pancreas: The pancreatic head, neck, and body are unremarkable. The pancreatic tail is obscured by bowel gas. Abdominal aorta and inferior vena cava: The visualized portions of the abdominal aorta and inferior vena cava are normal in caliber. There is no free fluid in the right upper quadrant. US/US abdomen knight w elastography IMPRESSION: Coarsened hepatic echotexture and a nodular liver contour, suggestive of cirrhosis. The median shear wave velocity in the liver is 1.65 m/s, corresponding to a median liver stiffness of 8.32 kPa. The IQR/median value is 0.05. This is indicative of a quality data set. Findings are indicative of a low elastography value which rules out advanced chronic liver disease in asymptomatic patients. REFERENCE: Society of Radiologists in Ultrasound Liver Stiffness Thresholds (2019): LIVER STIFFNESS THRESHOLDS: *Shear wave velocity less than 1.3 m/s (Liver Stiffness equal or less than 5 kPa): High probability of being normal. *Shear wave velocity less than 1.7 m/s (Liver Stiffness less than 9 kPa): In the absence of other known clinical signs, rules out compensated advanced chronic liver disease. *Shear wave velocity between 1.7-2.1 m/s (Liver Stiffness 9-13 kPa): Suggestive of compensated advanced chronic liver disease but need further test for confirmation. *Shear wave velocity between 2.1-2.4 m/s (Liver Stiffness 13-17 kPa): Rules in compensated advanced chronic liver disease. *Shear wave velocity greater than 2.4 m/s (Liver Stiffness over 17 kPa): Suggestive of clinically significant portal hypertension. QUALITY OF DATA SET: *IQR/Median value equal or less that 0.15 implies a quality data set. *IQR/Median value over 0.15 implies a poor quality data set. SIGNIFICANT CHANGE FROM PRIOR EXAM: Significant change if liver stiffness measurement is 10% or greater from prior exam. OTHER CONSIDERATIONS: The stage of liver fibrosis may be overestimated in the setting of acute hepatitis, liver inflammation, elevated liver function tests, hepatic vascular congestion, obstructive cholestasis, non-fasting state, and infiltrative diseases such as amyloidosis and lymphoma. In some patients with NAFLD, the liver stiffness thresholds for compensated advanced chronic liver disease may be lower. In causes other than viral hepatitis and NAFLD, liver stiffness thresholds are not well established. Electronically signed by: Dany Hatch MD 07/23/2024 10:13 AM EDT
--- OUTSIDE RECORDS SUMMARY | 2024-07-23 09:27 | XMS_ITS | Clinical Summary ---
Author Organization [facility] Address [address] [address] Phone Care Team Providers Care Director Outpatient Services Name Role Phone Christy Darden NP Primary Care Provider [phone] Allergies Active Allergy Reactions Criticality Noted Date [...] thigh, or buttocks 1 (one) time Active [place]-3 Fatty Acids (Fish Oil) 1200 MG capsule [...] Care Team (Late st Contact Info) Description 08/18/2024 Orders Only [facility] [address] [phone] Jacqueline Mckenzie ARNP [address] [address] Stage 3b chronic kidney disease (HCC); Hypertension; Microalbuminuria; Nephrolithiasis 09/23/2024 8:30 AM EDT Office Visit [facility] [address] [phone] Jacqueline Mckenzie ARNP [address] [phone] Health Maintenance Due Date Last [...] age to complete this topic Insurance Medicare [facility] Medicare [facility] Medicare [facility] Care Teams Director Outpatient Services Relationship Specialty Start Date End Date Christy Darden NP [address] [place] [address] PCP - General Nurse Practitioner 02/28/22
--- OUTSIDE RECORDS SUMMARY | 2024-07-23 09:27 | XMS_ITS | Encounter Summary ---
Author Organization [facility] [place], Address [address] [place] [address] Phone Care Team Providers Care Internet Sales Associate Name Role Phone Christy Darden CHAIN CARRIER Primary Care Provider Encounter Details Date Type Department Care Team (Late st Contact Info) Description 02/28/2022 Documentation Only [facility] [place], [address] [place] [address] Christy Darden, DAI [address] [place] [address] Social History Tobacco Use Types Packs/Day Years [...] Orders Only [facility] [address] [phone] Jacqueline Mckenzie ARNP [address] [place] [phone] Stage 3b chronic kidney disease (HCC); Hypertension; Microalbuminuria; Nephrolithiasis 09/23/2024 8:30 AM EDT Office Visit [facility] [address] [phone] Jacqueline Mckenzie ARNP [address] [address] documented as of this encounter Visit Diagnoses Not on filedocumented in this encounter Care Teams Internet Sales Associate Relationship Specialty Start Date End Date Christy Darden NP [address] [place] [address] PCP - General Nurse Practitioner 02/28/22 documented as of this encounter
--- OUTSIDE RECORDS SUMMARY | 2024-07-23 09:27 | XMS_ITS | Encounter Summary ---
Author Organization [facility] [place], Address [address] [place] [address] Phone Care Team Providers Care Pie Cutter Name Role Phone Christy Darden NP Primary Care Provider Encounter Details Date Type Department Care Team (Late st Contact Info) Description 03/07/2022 Documentation Only [facility] [place], [address] [facility] [place] [phone] Maciej Sauceda MD [address] [facility] [place] [phone] Social History Tobacco Use Types Packs/Day Years [...] Only [facility] [address] [phone] Jacqueline Mckenzie ARNP [address] [phone] Stage 3b chronic kidney disease (HCC); Hypertension; Microalbuminuria; Nephrolithiasis 09/23/2024 8:30 AM EDT Office Visit [facility] [address] [phone] Jacqueline Mckenzie ARNP [address] [address] documented as of this encounter Visit Diagnoses Not on filedocumented in this encounter Care Teams Pie Cutter Relationship Specialty Start Date End Date Christy Darden NP [address] [place] [address] PCP - General Nurse Practitioner 02/28/22 documented as of this encounter
--- OUTSIDE RECORDS SUMMARY | 2024-07-23 09:27 | XMS_ITS | Encounter Summary ---
Author Organization [facility], Address [address] [place] [address] Phone Care Team Providers Care Communications Superintendent Name Role Phone Christy Dardne FIREARMS INSPECTOR Primary Care Provider Encounter Details Date Type Department Care Team (Late st Contact Info) Description 02/28/2022 Documentation Only [facility], [address] [place] [address] Christy Darden, DAI [address] [place] [address] Social History Tobacco Use Types Packs/Day Years [...] Only [facility] [address] [phone] Jacqueline Mckenzie ARNP [address] [place] [phone] Stage 3b chronic kidney disease (HCC); Hypertension; Microalbuminuria; Nephrolithiasis 09/23/2024 8:30 AM EDT Office Visit [facility] [address] [phone] Jacqueline Mckenzie ARNP [address] [phone] documented as of this encounter Visit Diagnoses Not on filedocumented in this encounter Care Teams Communications Superintendent Relationship Specialty Start Date End Date Christy Darden NP [address] [place] [address] PCP - General Nurse Practitioner 02/28/22 documented as of this encounter
--- OUTSIDE RECORDS SUMMARY | 2024-07-23 09:27 | XMS_ITS | Encounter Summary ---
Author Organization [facility], Address [address] [place] [address] Phone Care Team Providers Care Air Export Logistics Manager Name Role Phone Christy Darden JACKSCREW WORKER Primary Care Provider Encounter Details Date Type Department Care Team (Late st Contact Info) Description 02/28/2022 Documentation Only [facility], [address] [place] [address] Christy Darden, DAI [address] [place] [address] Social History Tobacco Use Types Packs/Day Years [...] Only [facility] [address] [phone] Jacqueline Mckenzie ARNP [address] [place] [phone] Stage 3b chronic kidney disease (HCC); Hypertension; Microalbuminuria; Nephrolithiasis 09/23/2024 8:30 AM EDT Office Visit [facility] [address] [phone] Jacqueline Mckenzie ARNP [address] [phone] documented as of this encounter Visit Diagnoses Not on filedocumented in this encounter Care Teams Air Export Logistics Manager Relationship Specialty Start Date End Date Christy Darden NP [address] [place] [address] PCP - General Nurse Practitioner 02/28/22 documented as of this encounter
[2024-07-23 09:57] LABS: MANUAL DIFF FLAG NO
[2024-07-23 10:37] LABS: Basophils Absolute Auto 0.1 X10*3/uL (0.0-0.2); Basophils Percent Auto 0.7 % (0-2); Eosinophils Absolute Auto 0.2 X10*3/uL (0.0-0.4); Eosinophils Percent Auto 2.5 % (0-4); Hematocrit 39.6 % (42.0-52.0); Hemoglobin 13.9 g/dl (14.0-18.0); Imm Gran Abs Auto 0.05 X10*3/uL (0.00-0.03); Imm Gran Pct Auto 0.6 % (0.0-0.4); Lymphocytes Absolute Auto 1.7 X10*3/uL (1.2-4.9); Lymphocytes Percent Auto 19.4 % (20-40); Mean Corpuscular HGB Conc 35.1 g/dl (31.0-36.0); Mean Corpuscular Volume 91.2 fL (80.0-98.0); Mean Platelet Volume 11.2 fL (9.4-12.4); Monocytes Absolute Auto 0.7 X10*3/uL (0.1-1.2); Monocytes Percent Auto 7.7 % (2-11); Neutrophils Absolute Auto 6.1 x10*3/uL (2.0-8.3); Neutrophils Percent Auto 69.1 % (45-73); Platelet Count 143 X10*3/uL (160-400); Red Blood Count 4.34 X10*6/uL (4.60-5.80); Red Cell Distribution Width 14.1 % (11.0-16.0); White Blood Count 8.8 X10*3/uL (4.8-10.8)
[2024-07-23 11:07] LABS: C Reactive Protein 0.14 mg/dL (< or = 0.50); Cholesterol 103 mg/dL (<200); Estimated Glomerular Filt Rate 45; HDL Cholesterol 35 mg/dL (>40); LDL Cholesterol Calculated 51 mg/dL (<100); Triglycerides 88 mg/dL (<150); Uric Acid 4.8 mg/dL (3.4-7.0)
[2024-07-23 11:13] LABS: Erythrocyte Sedimentation Rate 13 MM/HR (0-15)
== END 2024-07-23 08:56 | disposition home or self-care (01) ==
LOC: HO.US 08:55
PROVIDERS: PCP Nurse Practitioner Family; Visit Provider Internal Medicine Rheumatology
DX: R74.01 Elevation of levels of liver transaminase levels (principal); M06.9 Rheumatoid arthritis, unspecified; Z79.899 Other long term (current) drug therapy; M06.09 Rheumatoid arthritis without rheumatoid factor, multiple sites; Z79.60 Long term (current) use of unspecified immunomodulators and immunosuppressants
CPT/HCPCS: 36415; 76705; 76981; 80061; 82565; 84550; 85025; 85652; 86140

== ENCOUNTER → 2024-07-23 08:57 | Outpatient (BNV) | payer MEDICARE, SELFPAY | PROVIDERS: PCP Nurse Practitioner Family; Visit Provider Radiology Diagnostic Radiology | DX: K76.89 Other specified diseases of liver (principal) | CPT/HCPCS: 76705; 76981 ==

== ENCOUNTER 2024-07-24 09:15 | Outpatient (AMB) | payer MEDICARE, SELFPAY ==
--- NOTE | 2024-07-24 09:20 | MHC.OFFVIS ---
Vital Signs 07/24/24 09:21 Height 5 ft 2 in Weight 153 lb 0.013 oz BMI 28.0 BP 130/82 Blood Pressure Location Rt brachial Position Sitting Pulse 48 L Pulse Source Pulse Oximeter Pulse Oximetry (%) 98 Oxygen Delivery Method Room Air Intake Visit Reasons: injection Intake Note: Patient presents today for an Rheumatoid arthritis follow up. Pillow Filler Required: No Accompanied by: Self / Same As Patient Allergies erythromycin base Allergy (Mild, Verified 07/24/24 09:21) Unknown ticlopidine [From Ticlid] Allergy (Mild, Verified 07/24/24 09:21) Rash cotrast dye Allergy (Severe, Uncoded 02/08/24 09:36) Anaphylaxis bee sting Allergy (Intermediate, Uncoded 02/08/24 09:36) Anaphylaxis HPI HPI injection: Details: L CMC pain for a month. When he extends his them years a pop, which is painful. Physical Exam Vital Signs: Last Vital Signs Pulse 48 L 07/24/24 09:21 BP 130/82 07/24/24 09:21 Pulse Ox 98 07/24/24 09:21 Oxygen Delivery Method Room Air 07/24/24 09:21 BMI result Body Mass Index 28.0 Const Other: General: Comfortable Skin: No lesions seen MSK: Tender to palpate left CMC with swelling. Squaring of bilateral CMCs. Office Procedures AMB Joint Injection/Aspiration Joint Injection/Aspiration Details: Left CMC Prep: site was prepped using aseptic technique Injected: 10 mg of, Kenalog, with 0.25 mL of and 1% plain lidocaine Procedure: The patient tolerated the procedure well. Postprocedure protocol was discussed with patient. Coding 33243 - Small Joint Procedure code (CPT) selection complete Office Meds lidocaine (PF) 10 mg/mL (1 %) injection solution Performing Provider: Jaden Prieto MD Performing Location: [facility] Administered by: Jaden Prieto MD on 07/25/24 10:34 Dose Route Admin Location Dispensed Lot Number Expiration Date [place] Special Education Itinerant Teacher 2.5 mg Infiltration 2 mL [id number] [facility] Kenalog 40 mg/mL suspension for injection Performing Provider: Jaden Prieto MD Performing Location: [facility] Administered by: Jaden Prieto MD on 07/25/24 10:34 Dose Route Admin Location Dispensed Lot Number Expiration Date NDC Special Education Itinerant Teacher 10 mg intra-articular 1 mL [place] [id number] [employer] Assessment & Plan Assessment & Plan (1) Arthritis of carpometacarpal (CMC) joint of left thumb: Comment: Uncontrolled pain from left CMC osteoarthritis. Code(s): M18.12 - Unilateral primary osteoarthritis of first carpometacarpal joint, left hand Category: Medical Plan: Patient received left CMC cortisone injection this visit Return to clinic at the end of the month for follow-up of rheumatoid arthritis Orders: Orders AMB Joint Injection/Aspiration 07/24/24 M18.12 - Unilateral primary osteoarthritis of first carpometacarpal joint, left hand Medications: New lidocaine (PF) 2.5 mg (0.25 mL) Infiltration ONCE 0.25 mL 0RF M18.12 - Unilateral primary osteoarthritis of first carpometacarpal joint, left hand Kenalog (triamcinolone acetonide) 10 mg (0.25 mL) intra-articular ONCE 0.25 mL 0RF NS M18.12 - Unilateral primary osteoarthritis of first carpometacarpal joint, left hand Coding Level of Care Code Est Pt Level 3 (43005) Complex EM visit Add On G2211 Diagnoses Arthritis of carpometacarpal (CMC) joint of left thumb M18.12 CPT Codes Coding - - Small joint: - Small Joint ([id number])
[2024-07-24 09:21] VITALS: BP 130/82; PULSE 48; O2SAT 98; BMI 28.0
--- OUTSIDE RECORDS SUMMARY | 2024-07-24 09:51 | XMS_ITS | Encounter Summary ---
Author Organization [facility], Address [address] [place] [address] Phone Care Team Providers Care Cafeteria Or Lunchroom Checker Name Role Phone Christy Darden EDGE WORKER Primary Care Provider [phone] Encounter Details Date Type Department Care Team (Late st Contact Info) Description 02/28/2022 Documentation Only [facility], [address] [place] [address] Christy Darden, DAI [address] [place] [address] Social History Tobacco Use Types Packs/Day Years [...] [facility] [address] [phone] Jacqueline Mckenzie ARNP [address] [place] [phone] Stage 3b chronic kidney disease (HCC); Hypertension; Microalbuminuria; Nephrolithiasis 09/23/2024 8:30 AM EDT Office Visit [facility] [address] [phone] Jacqueline Mckenzie ARNP [address] [phone] documented as of this encounter Visit Diagnoses Not on filedocumented in this encounter Care Teams Cafeteria Or Lunchroom Checker Relationship Specialty Start Date End Date Christy Darden NP [address] [place] [address] PCP - General Nurse Practitioner 02/28/22 documented as of this encounter
--- OUTSIDE RECORDS SUMMARY | 2024-07-24 09:51 | XMS_ITS | Encounter Summary ---
Author Organization [facility] [place], Address [address] [place] [address] Phone Care Team Providers Care Custom Ski Maker Name Role Phone Christy Darden BUSINESS TEACHER Primary Care Provider Encounter Details Date Type Department Care Team (Late st Contact Info) Description 02/28/2022 Documentation Only [facility] [place], [address] [place] [address] Christy Darden, DAI [address] [place] [address] Social History Tobacco Use Types Packs/Day Years [...] [facility] [address] [phone] Jacuqeline Mckenzie ARNP [address] [place] [phone] Stage 3b chronic kidney disease (HCC); Hypertension; Microalbuminuria; Nephrolithiasis 09/23/2024 8:30 AM EDT Office Visit [facility] [address] [phone] Jacqueline Mckenzie ARNP [address] [phone] documented as of this encounter Visit Diagnoses Not on filedocumented in this encounter Care Teams Custom Ski Maker Relationship Specialty Start Date End Date Christy Darden NP [address] [place] [address] PCP - General Nurse Practitioner 02/28/22 documented as of this encounter
--- OUTSIDE RECORDS SUMMARY | 2024-07-24 09:51 | XMS_ITS | Clinical Summary ---
Author Organization [facility] Address [address] [phone] Phone Care Team Providers Care Digital Research Analyst Name Role Phone Christy Darden NP Primary [...] thigh, or buttocks 1 (one) time Active [place]-3 Fatty Acids (Fish Oil) 1200 MG capsule [...] Orders Only [facility] [address] [phone] Jacqueline Mckenzie ARNP [address] [phone] Stage 3b chronic kidney disease (HCC); Hypertension; Microalbuminuria; Nephrolithiasis 09/23/2024 8:30 AM EDT Office Visit [facility] [address] [phone] Jacqueline Mckenzie ARNP [address] [phone] Health Maintenance Due Date Last [...] age to complete this topic Insurance Medicare [facility] Medicare [facility] Medicare [facility] Care Teams Digital Research Analyst Relationship Specialty Start Date End Date Christy Darden NP [address] [place] [address] PCP - General Nurse Practitioner 02/28/22
--- OUTSIDE RECORDS SUMMARY | 2024-07-24 09:51 | XMS_ITS | Encounter Summary ---
Author Organization [facility], Address [address] [place] [address] Phone Care Team Providers Care Manager Credit Risk Name Role Phone Christy Darden NP Primary Care Provider Encounter Details Date Type Department Care Team (Late st Contact Info) Description 03/07/2022 Documentation Only [facility] [place], [address] [facility] [place] [phone] Maciej Sauceda MD [address] [facility] [place] [phone] Social History Tobacco Use Types Packs/Day Years [...] Only [facility] [address] [phone] Jacqueline Mckenzie ARNP [address] [phone] Stage 3b chronic kidney disease (HCC); Hypertension; Microalbuminuria; Nephrolithiasis 09/23/2024 8:30 AM EDT Office Visit [facility]] [address] [phone] Jacqueline Mckenzie ARNP [address] [phone] documented as of this encounter Visit Diagnoses Not on filedocumented in this encounter Care Teams Manager Credit Risk Relationship Specialty Start Date End Date Christy Darden NP [address] [place] [address] PCP - General Nurse Practitioner 02/28/22 documented as of this encounter
--- OUTSIDE RECORDS SUMMARY | 2024-07-24 09:51 | XMS_ITS | Encounter Summary ---
Author Organization [facility] [place], Address [address] [place] [address] Phone Care Team Providers Care Foreign Language Interpreter Name Role Phone Christy Darden DIRECTOR BANKING Primary Care Provider Encounter Details Date Type Department Care Team (Late st Contact Info) Description 02/28/2022 Documentation Only [facility] [place], [address] [place] [address] Christy Darden, DAI [address] [place] [address] Social History Tobacco Use Types Packs/Day Years [...] [facility] [address] [phone] Jacqueline Mckenzie ARNP [address] [place] [phone] Stage 3b chronic kidney disease (HCC); Hypertension; Microalbuminuria; Nephrolithiasis 09/23/2024 8:30 AM EDT Office Visit [facility] [address] [phone] Jacqueline Mckenzie ARNP [address] [phone] documented as of this encounter Visit Diagnoses Not on filedocumented in this encounter Care Teams Foreign Language Interpreter Relationship Specialty Start Date End Date Christy Darden NP [address] [place] [address] PCP - General Nurse Practitioner 02/28/22 documented as of this encounter
== END 2024-07-24 09:52 | disposition home or self-care (01) ==
LOC: HO.RHES 09:16
PROVIDERS: PCP Nurse Practitioner Family; Visit Provider Internal Medicine Rheumatology
DX: M18.12 Unilateral primary osteoarthritis of first carpometacarpal joint, left hand (principal)
CPT/HCPCS: 20600; 99213

== ENCOUNTER → 2024-07-24 09:15 | Outpatient (BNVA) | payer MEDICARE, SELFPAY | PROVIDERS: PCP Nurse Practitioner Family; Visit Provider Internal Medicine Rheumatology | DX: M18.12 Unilateral primary osteoarthritis of first carpometacarpal joint, left hand (principal) | CPT/HCPCS: 20600; 99212; J2003; J3300 ==

== ENCOUNTER 2024-08-14 07:52 | Outpatient (AMB) | payer MEDICARE, SELFPAY ==
[2024-08-14 07:55] VITALS: BP 108/80; PULSE 49; O2SAT 95; BMI 28.1
--- NOTE | 2024-08-14 07:55 | A.OFFVIS_ITS ---
Vital Signs 08/14/24 07:55 Height 5 ft 2 in Weight 153 lb 14.122 oz BMI 28.1 BP 108/80 Blood Pressure Location Lt brachial Position Sitting Pulse 49 L Pulse Source Pulse Oximeter Pulse Oximetry (%) 95 Oxygen Delivery Method Room Air Intake Visit Reasons: 3 Months Allergies erythromycin base Allergy (Mild, Verified 08/14/24 07:55) Unknown ticlopidine [From Ticlid] Allergy (Mild, Verified 08/14/24 07:55) Rash cotrast dye Allergy (Severe, Uncoded 02/08/24 09:36) Anaphylaxis bee sting Allergy (Intermediate, Uncoded 02/08/24 09:36) Anaphylaxis HPI HPI 3 Months: Details: BS increased to 400s. It took 1 week for BS to be controlled. He has an insulin pump. Pain in left CMC has decreased. He has not had Actemra since last visit. He prefers to have prescription picked up at his local pharmacy in [facility]. He has not had the time to get prescription at [facility] He continues to take allopurinol 300 mg daily. No gout flares. No new joint pain or swelling. Left thumb continues to trigger. He has not gone to occupational therapy. He continues to wear a splint. Physical Exam Vital Signs: Last Vital Signs Pulse 49 L 08/14/24 07:55 BP 108/80 08/14/24 07:55 Pulse Ox 95 08/14/24 07:55 Oxygen Delivery Method Room Air 08/14/24 07:55 BMI result Body Mass Index 28.1 Const Other: General: Comfortable CVS: RRR Respiratory: clear to auscultation bilaterally. Good respiratory effort Skin: No lesions seen MSK: Left squaring present with tenderness on palpation. Triggering of left thumb present with tenderness on palmar aspect of MCP without nodule palpated. Shoulder abduction 110 degrees bilaterally. Good internal external rotation of shoulders. Knee flexion 120 degrees bilaterally. 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 No synovitis. Assessment & Plan Assessment & Plan (1) Rheumatoid arthritis: Comment: He is in clinical remission on hydroxychloroquine and off of Actemra since April. He did not have time to go to [facility] pharmacy to supervisor picking crew Actemra. He prefers Actemra to be picked up at [facility] pharmacy. I recommended that he contact his insurance to find out their preferred specialty pharmacy. He has developed new transaminitis, confirmed on repeat testing. Ultrasound liver with elastography reports a possibility of cirrhosis. I will be repeating LFTs this visit. If they are unchanged transaminitis is likely unrelated to Actemra. I am recommending that he sees window shade ring sewer Dr. Claudio Potter for follow-up for evaluation/workup of this new problem. He is on allopurinol and atorvastatin, which also can contribute to liver toxicity. Rheumatology history: 73-year-old male with history of seronegative rheumatoid arthritis initially presenting as PMR mimic with right MTP synovitis on initial presentation. He continued to develop polyarthralgias left MCP synovitis when prednisone was tapered when he was being treated for PMR initially. Hence swelling resolved on low-dose prednisone. He developed hyperglycemia (history of IDDM) on low-dose prednisone and was able to adjust via insulin pump. Methotrexate started August 2020 to 11/06/2021 due to pneumonitis on CT chest likely due to methotrexate toxicity. Humira started 06/06/2021 to 07/07/2021 but discontinued due to pneumonia and shingles. He has remained on hydroxychloroquine since 01/06/2022. He is also controlled on Actemra subcutaneous injection weekly. Code(s): M06.9 - Rheumatoid arthritis, unspecified Category: Medical Qualifiers: Rheumatoid arthritis location: multiple sites Rheumatoid factor presence: without rheumatoid factor Qualified Code(s): M06.09 - Rheumatoid arthritis without rheumatoid factor, multiple sites Plan: Continue hydroxychloroquine 300 mg daily. Last eye exam 05/2024 he has been cleared to continue AC Q. Visual field tests will be obtain 10/01/2024. Restart Actemra 162 mg every other week Labs for drug monitoring on high-risk medication reviewed from July 2024. Lipid panel up-to-date. LFTs were not part of workup. GI follow-up referring to Dr. Potter for eval/workup of possible liver cirrhosis Return to clinic in 3 months (2) Transaminitis: Code(s): R74.01 - Elevation of levels of liver transaminase levels Category: Medical Plan: See above (3) Cirrhosis: Comment: On recent ultrasound May 2024 Code(s): K74.60 - Unspecified cirrhosis of liver Category: Medical Plan: See above (4) Gout: Comment: with tophus right 1st toe. Risk factor: hx CKD. 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 He is on allopurinol 350 mg daily recently increased from 300 mg daily. He was having recurrent flares on allopurinol 300 mg daily despite uric acid acid level being 4.7 then 4.3. I will aim to have uric acid level goal closer to 4 for patient. Uric acid as at goal 07/2024. Code(s): M10.9 - Gout, unspecified Category: Medical Qualifiers: Chronicity: chronic Gout etiology: due to renal impairment Gout site: toe Laterality: right Presence of tophus: with tophus Qualified Code(s): M1A.3711 - Chronic gout due to renal impairment, right ankle and foot, with tophus (tophi) Plan: Continue allopurinol 300 mg daily Return to clinic in 3 months (5) Trigger finger of left thumb: Code(s): M65.312 - Trigger thumb, left thumb Category: Medical Plan: I asked patient to schedule OT for conservative management Splint at night Return to clinic in 3 months (6) Arthritis of carpometacarpal (CMC) joint of left thumb: Comment: Pain and joints swelling improved after last cortisone injection but he experienced hyperglycemia lasting a week on background of diabetes. Code(s): M18.12 - Unilateral primary osteoarthritis of first carpometacarpal joint, left hand Category: Medical Plan: Return to clinic in 3 months (7) Other intermission coordinator (current) drug therapy: Code(s): Z79.899 - Other intermission coordinator (current) drug therapy Category: Medical Plan: See above (8) ILD (interstitial lung disease): Comment: Stable. 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 PFT 05/2022 mild restrictive ventilatory defect, and mild diffusion capacity impairment consistent with ILD. 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 He follows up with [facility] housing development specialist Dr. Carlitos Phelan. Code(s): J84.9 - Interstitial pulmonary disease, unspecified Category: Medical Plan: He follows up with pulmonology at [facility] Orders: Orders Complete Blood Count Man Dif Today M06.09 - Rheumatoid arthritis without rheumatoid factor, multiple sites, R74.01 - Elevation of levels of liver transaminase levels Absolute Neutrophil Count Today M06.09 - Rheumatoid arthritis without rheumatoid factor, multiple sites, R74.01 - Elevation of levels of liver transaminase levels Alanine Aminotransferase Today M06.09 - Rheumatoid arthritis without rheumatoid factor, multiple sites, R74.01 - Elevation of levels of liver transaminase levels Aspartate Amino Transferase Today M06.09 - Rheumatoid arthritis without rheumatoid factor, multiple sites, R74.01 - Elevation of levels of liver transaminase levels Referrals Gastroenterology Referral K74.60 - Unspecified cirrhosis of liver, R74.01 - Elevation of levels of liver transaminase levels Medications: Refilled Actemra (tocilizumab) Inject SQ every other week PA approved. 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
--- OUTSIDE RECORDS SUMMARY | 2024-08-14 07:55 | XMS_ITS | Encounter Summary ---
Author Organization [facility], Address [address] [place] [address] Phone Care Team Providers Care Division Order Technician Name Role Phone Christy Darden GROCERY CHECKER Primary Care Provider Encounter Details Date Type Department Care Team (Late st Contact Info) Description 02/28/2022 Documentation Only [facility], [address] [place] [address] Christy Darden, DAI [address] [place] [address] Social History Tobacco Use Types Packs/Day Years [...] Only [facility] [address] [phone] Jacqueline Mckenzie ARNP [address] [place] [phone] Stage 3b chronic kidney disease (HCC); Hypertension; Microalbuminuria; Nephrolithiasis 09/23/2024 8:30 AM EDT Office Visit [facility] [address] [phone] Jacqueline Mckenzie ARNP [address] [phone] documented as of this encounter Visit Diagnoses Not on filedocumented in this encounter Care Teams Division Order Technician Relationship Specialty Start Date End Date Christy Darden NP [address] [place] [address] PCP - General Nurse Practitioner 02/28/22 documented as of this encounter
== END 2024-08-14 08:35 | disposition home or self-care (01) ==
LOC: HO.RHES 07:53
PROVIDERS: PCP Nurse Practitioner Family; Visit Provider Internal Medicine Rheumatology
DX: M06.09 Rheumatoid arthritis without rheumatoid factor, multiple sites (principal); R74.01 Elevation of levels of liver transaminase levels; K74.60 Unspecified cirrhosis of liver; M1A.37 Chronic gout due to renal impairment, ankle and foot; M65.312 Trigger thumb, left thumb; M18.12 Unilateral primary osteoarthritis of first carpometacarpal joint, left hand; Z79.899 Other long term (current) drug therapy; J84.9 Interstitial pulmonary disease, unspecified
CPT/HCPCS: 99214; G2211

== ENCOUNTER → 2024-08-14 07:52 | Outpatient (BNVA) | payer MEDICARE, SELFPAY | PROVIDERS: PCP Nurse Practitioner Family; Visit Provider Internal Medicine Rheumatology | DX: M06.09 Rheumatoid arthritis without rheumatoid factor, multiple sites (principal); M1A.37 Chronic gout due to renal impairment, ankle and foot; M65.312 Trigger thumb, left thumb; M18.12 Unilateral primary osteoarthritis of first carpometacarpal joint, left hand; J84.9 Interstitial pulmonary disease, unspecified; Z79.899 Other long term (current) drug therapy; R74.01 Elevation of levels of liver transaminase levels; K74.60 Unspecified cirrhosis of liver | CPT/HCPCS: 99212 ==

== ENCOUNTER 2024-08-16 11:03 | Outpatient (REF) | payer MEDICARE, SELFPAY ==
--- OUTSIDE RECORDS SUMMARY | 2024-08-16 11:59 | XMS_ITS | Encounter Summary ---
Author Organization [facility], Address [address] [place] [address] Phone Care Team Providers Care Ore Sampler Name Role Phone Christy Darden MOBILE HOME PARK MANAGER Primary Care Provider Encounter Details Date Type Department Care Team (Late st Contact Info) Description 02/28/2022 Documentation Only [facility], [address] [place] [address] Christy Darden, DAI [address] [place] [address] Social History Tobacco Use Types Packs/Day Years [...] Only [facility] [address] [phone] Jacqueline Mckenzie ARNP [address] [place] [phone] Stage 3b chronic kidney disease (HCC); Hypertension; Microalbuminuria; Nephrolithiasis 09/23/2024 8:30 AM EDT Office Visit [facility] [address] [phone] Jacqueline Mckenzie ARNP [address] [phone] documented as of this encounter Visit Diagnoses Not on filedocumented in this encounter Care Teams Ore Sampler Relationship Specialty Start Date End Date Christy Darden NP [address] [place] [address] PCP - General Nurse Practitioner 02/28/22 documented as of this encounter
[2024-08-16 15:04] LABS: Baso%MD 0.4 %; Eos%MD 1.1 %; Hematocrit 38.9 % (42.0-52.0); Hemoglobin 13.1 g/dl (14.0-18.0); IG%MD 0.4 %; Lymph%MD 15.1 %; Mean Corpuscular HGB Conc 33.7 g/dl (31.0-36.0); Mean Corpuscular Hemoglobin 31.5 pg (27.0-33.0); Mean Corpuscular Volume 93.5 fL (80.0-98.0); Mean Platelet Volume 11.3 fL (9.4-12.4); Mono%MD 7.9 %; Neut%MD 75.1 %; Neutrophils Absolute Auto 6.5 x10*3/uL (2.0-8.3); Platelet Count 159 X10*3/uL (160-400); Red Blood Count 4.16 X10*6/uL (4.60-5.80); Red Cell Distribution Width 13.9 % (11.0-16.0); WBCANC 8.6 X10*3/uL; White Blood Count 8.6 X10*3/uL (4.8-10.8)
[2024-08-16 15:55] LABS: Alanine Aminotransferase 44 U/L (0-40); Aspartate Amino Transferase 40 U/L (5-37)
[2024-08-16 18:22] LABS: Atypical Lymph Absolute Manual 0.3 x10*3/uL; Atypical Lymphs Percent Manual 3 % (0-6); Band Neutrophils Percent 0 % (3-5); Eosinophils Absolute Manual 0.1 X10*3/uL (0.0-0.4); Eosinophils Percent Manual 1 % (0-4); Lymphocytes Absolute Manual 1.1 X10*3/uL (1.2-4.9); Lymphocytes Percent Manual 13 % (20-40); Metamyelocytes Absolute 0.1 X10*3/uL; Metamyelocytes Percent 1 %; Monocytes Absolute Manual 0.8 X10*3/uL (0.1-1.2); Monocytes Percent Manual 9 % (2-11); Neutrophils Absolute Manual 6.3 X10*3/uL (2.0-8.3); Neutrophils Percent Manual 73 % (45-73)
[2024-08-16 18:25] LABS: RBC Morphology NORMAL
[2024-08-16 18:26] LABS: Platelet Estimate NORMAL (NORMAL); Platelet Morphology Comment NORMAL
== END 2024-08-16 11:04 | disposition home or self-care (01) ==
LOC: HO.WFDLDS 11:03
PROVIDERS: Visit Provider Internal Medicine Rheumatology
DX: M06.09 Rheumatoid arthritis without rheumatoid factor, multiple sites (principal); R74.01 Elevation of levels of liver transaminase levels; Z79.899 Other long term (current) drug therapy
CPT/HCPCS: 36415; 84450; 84460; 85007; 85027

== ENCOUNTER 2024-09-09 11:40 | Outpatient (REF) | payer MEDICARE, SELFPAY ==
--- OUTSIDE RECORDS SUMMARY | 2024-09-09 13:20 | XMS_ITS | Encounter Summary ---
Author Organization [facility], Address [address] [place] [address] Phone Care Team Providers Care Auto Inspector Name Role Phone Christy Dardne MEDICAL RECORD SPECIALIST Primary Care Provider Encounter Details Date Type Department Care Team (Late st Contact Info) Description 02/28/2022 Documentation Only [facility], [address] [place] [phone] Christy Darden, DAI [address] [place] [address] Social History Tobacco Use Types Packs/Day Years [...] Visit [facility] [address] [phone] Jacqueline Mckenzie ARNP [address] [phone] documented as of this encounter Visit Diagnoses Not on filedocumented in this encounter Care Teams Auto Inspector Relationship Specialty Start Date End Date Christy Darden NP [address] [place] [address] PCP - General Nurse Practitioner 02/28/22 documented as of this encounter
[2024-09-09 14:11] LABS: Uric Acid 4.8 mg/dL (3.4-7.0)
[2024-09-09 14:14] LABS: Estimated Average Glucose 137 mg/dL; Hemoglobin A1c % 6.4 % (<6.0)
== END 2024-09-09 11:41 | disposition home or self-care (01) ==
LOC: HO.WFDLDS 11:40
PROVIDERS: Referring Provider Pediatrics; Visit Provider Internal Medicine Rheumatology
DX: M06.9 Rheumatoid arthritis, unspecified (principal); Z79.899 Other long term (current) drug therapy; E11.8 Type 2 diabetes mellitus with unspecified complications
CPT/HCPCS: 36415; 83036; 84550

== ENCOUNTER 2024-10-29 12:55 | Outpatient (REF) | payer MEDICARE, SELFPAY ==
--- OUTSIDE RECORDS SUMMARY | 2024-10-29 13:40 | XMS_ITS | Clinical Summary ---
Author Organization [facility] [address] [facility] Address [address] [place] [address] Phone Care Team Providers Care Rate And Cost Analyst Name Role Phone Christy Darden NP Primary Care Provider + [phone] Allergies Active Allergy Reactions Criticality Noted Date Comments Bee Venom Protein (Honey Bee) Anaphylaxis High 02/13 Erythromycin Base Unknown 02/13/2023 Iodinated Contrast Media Anaphylaxis High 02/13/2023 Ticlopidine Rash 02/13/2023 Medications hydroxychloroquin e 300 mg tablet Take 150 mg by mouth. Active allopurinoL (ZYLOPRIM) 100 mg tablet Take 1 tablet (100 mg total) by mouth. Active atorvastatin (LIPITOR) 80 mg tablet Take 1 tablet (80 mg total) by mouth 1 (one) time each day. Active tocilizumab (ACTEMRA) subcutaneous injection Inject 0.9 mL (162 mg total) under the skin every 7 (seven) days. Active amLODIPine (NORVASC) 10 mg tablet Take 1 tablet (10 mg total) by mouth 1 (one) time each day. Active chlorthalidone (HYGROTON) 25 mg tablet Take 1 tablet (25 mg total) by mouth 1 (one) time each day. Active clopidogreL (PLAVIX) 75 mg tablet Take 1 tablet (75 mg total) by mouth 1 (one) time each day. Active colchicine (MITIGARE) 0.6 mg capsule capsule Take 1 capsule (0.6 mg total) by mouth. Active apixaban (ELIQUIS) 5 mg tablet Take 1 tablet (5 mg total) by mouth 2 (two) times a day. Active eplerenone (INSPRA) 25 mg tablet Take 1 tablet (25 mg total) by mouth 1 (one) time each day. Active folic acid (FOLVITE) 1 mg tablet Take 1 tablet (1 mg total) by mouth. Active omega-3 (FISH OIL) 300-1,000 mg capsule Take 1 capsule (1,000 mg total) by mouth 1 (one) time each day. Active insulin lispro 100 unit/mL injection Inject 1 Units under the skin. Active isosorbide mononitrate (IMDUR) 30 mg 24 hr tablet Take 3 tablets (90 mg total) by mouth 1 (one) time each day. Active lisinopril (PRINIVIL,ZESTRIL ) 40 mg tablet Take 1 tablet (40 mg total) by mouth 1 (one) time each day. Active metoprolol succinate (TOPROL-XL) 100 mg 24 hr tablet Take 1 tablet (100 mg total) by mouth 1 (one) time each day. Active nitroglycerin (NITROSTAT) 0.3 mg SL tablet 1 tablet (0.3 mg total). Active ranolazine (RANEXA) 500 mg 12 hr tablet Take 1 tablet (500 mg total) by mouth 1 (one) time each day. Do not crush, chew, or split. Active Active Problems Problem Noted Date Diagnosed Date CAD (coronary artery disease) 09/19/2024 Overview (09/19/2024): S/p 23 stent Kidney stones 09/19/2024 Type 2 diabetes mellitus, wi th long-term current use of insulin ([facility] V24, [facility] V28) 09/19/2024 RA (rheumatoid arthritis) ([facility] V24, [facility] V28) 09/19/2024 Gout 09/19/2024 Hyperlipidemia 09/19/2024 Chronic atrial fibrillation ([facility] V24, [facility]/ [facility] V28) 09/19/2024 HTN (hypertension) 09/19/2024 Encounters Date Type Department Care Team Description 09/30/2024 Telephone Gastroenterology - [address] [facility] [address] [phone] Cherelle Feliz PA 09/19/2024 2:10 PM EDT Office Visit Gastroenterology - [address] [facility] [address] [phone] Cherelle Feliz PA Cirrhosis of liver without ascites, unspecified hepatic cirrhosis type (CMS/HCC V24, CMS/HCC V28) (Primary Dx); Elevated LFTs; Coronary artery disease involving chippewa-cree heart, unspecified vessel or lesion type, unspecified whether angina present from Last 3 Months Surgical History Surgery Date Site/Laterality Comments COLONOSCOPY 01/18/2023 - 02/16/2023 tics in sigmoid and ascending colon, internal hemorrhoids(5 yr/famhx) Dr. Potter CHOLECYSTECTOMY CORONARY ARTERY BYPASS GRAFT 03/20/2008 - 03/19/2009 one vessel Social History Tobacco Use Types Packs/Day Years Used Date Smoking Tobacco: Never Assessed Sex and Gender Information Value Date Recorded Sex Assigned at Not on file Legal Sex Male 8:24 PM EST Gender Identity Not on file Sexual Orientation Not on file Obstetrics History Last Filed Vital Signs Vital Sign Reading Time Taken Comments Blood Pressure - - Pulse - - Temperature - - Respiratory Rate - - Oxygen Saturation - - Inhaled Oxygen Concentration - - Weight 68.9 kg (152 lb) 09/19/2024 2:03 PM EDT Height 157.5 cm (5' 2 ) 09/19/2024 2:03 PM EDT Body Mass Index 27.8 09/19/2024 2:03 PM EDT Plan of Treatment Upcoming Encounters Date Type Department Care Team (Late st Contact Info) Description 11/27/2024 8:15 AM EDT Appointment [facility] Endoscopy [address] [place] [phone] Gilmar Pate MD [address] [address] 03/24/2025 9:10 AM EST Office Visit Gastroenterology - [address] [facility] [address] [phone] Cherelle Feliz PA [address] [phone] Health Maintenance Due Date Last Done Comments Diabetes: Annual Foot Exam 1961 Diabetes: Annual Retina Eye Exam 1961 Hepatitis B Vaccines (1 of 3 - Risk 3-dose series) 2011 RSV Immunization Adult Patients (1 - Risk 60-74 years 1-dose series) 2011 Zoster Vaccines (2 of 2) 05/07/2013 03/12/2013 Pneumococcal Vaccine: 50+ Years (3 of 3 - PCV20 or PCV21) 03/31/2022 03/31/2017, 03/14/2015 Cholesterol Screening (Lipid Panel) 04/14/2023 Falls Risk Assessment 04/14/2023 Medicare Annual Wellness Visit 04/14/2023 Social Influencers of Health Screening 04/14/2023 COVID-19 Vaccine ( season) 2023 02/22/2021, 07/15/2020, 06/10/2020 Depression Screening 03/20/2024 Diabetes: Annual Urine Albumin-Creatinine Ratio (uACR) 09/20/2024 Diabetes: Blood Sugar Control Test (HGBA1C) 09/20/2024 Influenza Vaccine (#1) 2024 , 01/06/2022, 12/24/2020, Additional history exists DTaP,Tdap,and Td Vaccines (3 - Td or Tdap) 09/06/2025 09/07/2015, 04/28/2009 Diabetes: Annual GFR (Glomerular Filtration Rate) 09/19/2025 09/19/2024 Hypertension/CHF/CAD Annual BMP Blood Test 09/19/2025 09/19/2024 Colorectal Cancer Screening: Colonoscopy 10/25/2034 10/25/2024 Hepatitis A Vaccines Completed 11/12/2009, 04/28/19 Hepatitis C Screening Completed 09/19/2024 HIB Vaccines Aged Out No longer eligi ble based on patient's age to complete this topic HPV Vaccines Aged Out No longer eligi ble based on patient's age to complete this topic IPV Vaccines Aged Out No longer eligi ble based on patient's age to complete this topic MMR Vaccines Aged Out No longer eligi ble based on patient's age to complete this topic Meningococcal ACWY Vaccine Aged Out N o longer eligible based on patient's age to complete this topic Meningococcal B Vaccine Aged Out No l onger eligible based on patient's age to complete this topic RSV Immunization Patients Under 20 months Aged Out No longer eligible based on patient's age to complete this topic Varicella Vaccines Aged Out No longer eligible based on patient's age to complete this topic Procedures Procedure Name Priority Date/Time Associated Diagnosis Comments COLONOSCOPY Routine 10/25/2024 11:38 AM EDT [place] PROTEIN ELECTROPHORETIC FRACTIONATION & QUANTITATION SERUM Routine 09/19/2024 3:40 PM EDT Cirrhosis of liver without ascites, unspecified hepatic cirrhosis type (CMS/HCC V24, CMS/HCC V28) HEPATITIS A ANTIBODY IGM Routine 025 3:40 PM EDT Cirrhosis of liver without ascites, unspecified hepatic cirrhosis type (CMS/HCC V24, CMS/HCC V28) PROTEIN, TOTAL Routine 09/19/2024 3:40 PM EDT Cirrhosis of liver without ascites, unspecified hepatic cirrhosis type (CMS/HCC V24, CMS/HCC V28) BILIRUBIN DUPLICATE PROCEDURE TO ORDER Routine 09/19/2024 3:40 PM EDT Cirrhosis of liver without ascites, unspecified hepatic cirrhosis type (CMS/HCC V24, CMS/HCC V28) CBC WITH AUTO DIFFERENTIAL Routine 09/19/2024 3:40 PM EDT Cirrhosis of liver without ascites, unspecified hepatic cirrhosis type (CMS/HCC V24, CMS/HCC V28) BRANDY IFA WITH TITER AND PATTERN Routine 09/19/2024 3:40 PM EDT Cirrhosis of liver without ascites, unspecified hepatic cirrhosis type (CMS/HCC V24, CMS/HCC V28) ANTIMITOCHONDRIAL ANTIBODY Routine 09/19/2024 3:40 PM EDT Cirrhosis of liver without ascites, unspecified hepatic cirrhosis type (CMS/HCC V24, CMS/HCC V28) SMOOTH MUSCLE ANTIBODY IGG Routine 09/19/2024 3:40 PM EDT Cirrhosis of liver without ascites, unspecified hepatic cirrhosis type (CMS/HCC V24, CMS/HCC V28) TISSUE TRANSGLUTAMINASE, IGA Routine 09/19/2024 3:40 PM EDT Cirrhosis of liver without ascites, unspecified hepatic cirrhosis type (CMS/HCC V24, CMS/HCC V28) IMMUNOGLOBULIN IGA Routine 09/19/2024 3: 40 PM EDT Cirrhosis of liver without ascites, unspecified hepatic cirrhosis type (CMS/HCC V24, CMS/HCC V28) ENDOMYSIAL ANTIBODY, IGA Routine 025 3:40 PM EDT Cirrhosis of liver without ascites, unspecified hepatic cirrhosis type (CMS/HCC V24, CMS/HCC V28) FERRITIN Routine 09/19/2024 3:40 PM EDT Cirrhosis of liver without ascites, unspecified hepatic cirrhosis type (CMS/HCC V24, CMS/HCC V28) IRON AND TIBC Routine 09/19/2024 3:40 PM EDT Cirrhosis of liver without ascites, unspecified hepatic cirrhosis type (CMS/HCC V24, CMS/HCC V28) PROTEIN ELECTROPHORESIS, SERUM Routine 09/19/2024 3:40 PM EDT Cirrhosis of liver without ascites, unspecified hepatic cirrhosis type (CMS/HCC V24, CMS/HCC V28) COMPREHENSIVE METABOLIC PANEL Routine 09/19/2024 3:40 PM EDT Cirrhosis of liver without ascites, unspecified hepatic cirrhosis type (CMS/HCC V24, CMS/HCC V28) CERULOPLASMIN Routine 09/19/2024 3:40 PM EDT Cirrhosis of liver without ascites, unspecified hepatic cirrhosis type (CMS/HCC V24, CMS/HCC V28) CBC AND DIFFERENTIAL Routine 09/19/2024 3:40 PM EDT Cirrhosis of liver without ascites, unspecified hepatic cirrhosis type (CMS/HCC V24, CMS/HCC V28) HEPATITIS A ANTIBODY TOTAL WITH REFLEX IGM Routine 09/19/2024 3:40 PM EDT Cirrhosis of liver without ascites, unspecified hepatic cirrhosis type (CMS/HCC V24, CMS/HCC V28) HEPATITIS B SURFACE ANTIBODY Routine 09/19/2024 3:40 PM EDT Cirrhosis of liver without ascites, unspecified hepatic cirrhosis type (CMS/HCC V24, CMS/HCC V28) HEPATITIS C ANTIBODY Routine 09/19/2024 3:40 PM EDT Cirrhosis of liver without ascites, unspecified hepatic cirrhosis type (CMS/HCC V24, CMS/HCC V28) PROTHROMBIN TIME WITH INR Routine 2024 3:40 PM EDT Cirrhosis of liver without ascites, unspecified hepatic cirrhosis type (CMS/HCC V24, CMS/HCC V28) ALPHA FETOPROTEIN TUMOR MARKER Routine 09/19/2024 3:40 PM EDT Cirrhosis of liver without ascites, unspecified hepatic cirrhosis type (CMS/HCC V24, CMS/HCC V28) SHEETS FIBROSURE Routine 09/19/2024 3:40 PM EDT Cirrhosis of liver without ascites, unspecified hepatic cirrhosis type (CMS/HCC V24, CMS/HCC V28) Elevated LFTs HEPATITIS B CORE ANTIBODY, TOTAL Routine 09/19/2024 3:40 PM EDT Cirrhosis (CMS/HCC V24, CMS/HCC V28) HEPATITIS B SURFACE ANTIGEN WITH CONFIRMATION Routine 09/19/2024 3:40 PM EDT Cirrhosis (CMS/HCC V24, CMS/HCC V28) EXTERNAL CLINICAL LAB 09/19/2024 from Last 3 Months Results * COLONOSCOPY (10/25/2024 11:38 AM EDT) Anatomical Region Laterality Modality Endoscopy us Historical Provider MD ORNELAS~PROCEDURE ORDERABLES F inal Result * Bilirubin duplicate procedure to order (09/19/2024 3:40 PM EDT) Total Bilirubin 0.7 0.0 - 1.4 mg/dL LAB CHEMISTRY METHOD 09/19/2024 7:09 PM EDT [facility] Bilirubin, Direct 0.2 0.0 - 0.3 mg/dL LAB CHEMISTRY METHOD 09/19/2024 7:09 PM EDT [facility] Bilirubin, Indirect 0.5 0.0 - 1.1 mg/dL LAB CHEMISTRY METHOD 09/19/2024 7:09 PM EDT [facility] Blood Venous blood specimen / Unknown Venipuncture / Unknown 09/19/2024 3:40 PM EDT 09/19/2024 4:37 PM EDT Cherelle WOOD LAB BLOOD ORDERABLES Final R esult Performing Organization Address City/[facility]/ZIP Co de Phone Number [facility] [address] [place] [address], [place] [phone] * Hepatitis C antibody (09/19/2024 3:40 PM EDT) Hepatitis C Antibody Negative Negative LAB CHEMISTRY METHOD 09/19/2024 7:59 PM EDT [facility] Blood Venous blood specimen / Unknown Venipuncture / Unknown 09/19/2024 3:40 PM EDT 09/19/2024 4:37 PM EDT Cherelle WOOD LAB BLOOD ORDERABLES Final R esult [facility] [address] [place] [address], [place] [phone] * Hepatitis B surface antigen with reflex to confirmation (09/19/2024 3:40 PM EDT) Hepatitis B Surface Ag Negative Negative LAB CHEMISTRY METHOD 09/19/2024 7:31 PM EDT [facility] Blood Venous blood specimen / Unknown Venipuncture / Unknown 09/19/2024 3:40 PM EDT 09/19/2024 4:37 PM EDT Narrative [facility] - 09/19/2024 7:31 PM EDT Over the counter supplements containing high doses of biotin may interfere with this assay. If interference is suspected, patients shoud be retested after refraining from biotin supplements for 72 hours. Cherelle WOOD LAB BLOOD ORDERABLES Final R esult Performing Organization Address City/[facility]/ZIP Co de Phone Number [facility] [address] [place] [address], [place] [phone] * PATHOLOGIST REVIEW PROTEIN ELECTROPHORESIS (09/19/2024 3:40 PM EDT) Pathologist [facility] Pathologist Interpretation Reviewed by Margot Dasilva MD 09/24/2024 9:28 AM EDT [facility] Blood Venous blood specimen / Unknown Venipuncture / Unknown 09/19/2024 3:40 PM EDT 09/19/2024 4:35 PM EDT Cherelle WOOD LAB BLOOD ORDERABLES Final R esult Performing Organization Address City/[facility]/ZIP Co de Phone Number [facility] [address] [place] [address], [place] [phone] * (ABNORMAL) Hepatitis A antibody total with reflex IgM (09/19/2024 3:40 PM EDT) Pathologist [facility] Hep A Total Ab Positive( A) Negative LAB CHEMISTRY METHOD 09/19/2024 7:59 PM EDT [facility] Blood Venous blood specimen / Unknown Venipuncture / Unknown 09/19/2024 3:40 PM EDT 09/19/2024 4:37 PM EDT Narrative [facility] - 09/19/2024 7:59 PM EDT Over the counter supplements containing high doses of biotin may interfere with this assay. If interference is suspected, patients shoud be retested after refraining from biotin supplements for 72 hours. Cherelle Turnerlamonte [facility] LAB BLOOD ORDERABLES Final R esult Performing Organization Address City/[facility]/ZIP Co de Phone Number [facility] [address] [place] [address], [place] [phone] * SHEETS fibrotest liver diease (09/19/2024 3:40 PM EDT) SHEETS FibroSure See Below 09/26/2024 10:48 AM EDT [facility] Comment: SHEETS FibroSure(R) Plus SEE REPORT UNDER SEPARATE COVER. REPORT WILL BE SENT TO THE ORDERING LABORATORY VIA PRINTER OR FAX. ADDITIONAL COPIES OF THE ORIGINAL REPORT MAY ALSO BE OBTAINED BY CALLING [facility] CLIENT SERVICES at [phone] Blood Venous blood specimen / Unknown Venipuncture / Unknown 09/19/2024 3:40 PM EDT 09/19/2024 4:35 PM EDT [facility] [employer] LAB BLOOD ORDERABLES Edited Result - Final Performing Organization Address [facility]/ZIP Co de Phone Number [facility] [address] [place] [address] * Endomysial antibody, IgA (09/19/2024 3:40 PM EDT) Endomysial IgA Negative Negative 09/25/2024 11:09 AM EDT [facility] Blood Venous blood specimen / Unknown Venipuncture / Unknown 09/19/2024 3:40 PM EDT 09/19/2024 4:35 PM EDT [facility] [place] LAB BLOOD ORDERABLES Final R esult Performing Organization Address City/[facility]/ZIP Co de Phone Number [facility] [address] [place] [address], [place] [phone] * BRANDY IFA with titer and pattern (09/19/2024 3:40 PM EDT) Pathologist [facility] BRANDY Negative Negative 09/23/2024 9:58 AM EDT [facility] Blood Venous blood specimen / Unknown Venipuncture / Unknown 09/19/2024 3:40 PM EDT 09/19/2024 4:35 PM EDT Cherelle WOOD LAB BLOOD ORDERABLES Final R esult [facility] [address] [place] [address], * (ABNORMAL) CBC auto differential (09/19/2024 3:40 PM EDT) [facility] WBC 18.5(H) 4.8 - 10.8 K/mcL LAB HEMETOLOGY METHOD 09/19/2024 4:53 PM EDT [facility] RBC 4.50 4.50 - 5.50 M/mcL LAB HEMETOLOGY METHOD 09/19/2024 4:53 PM EDT [facility] Hemoglobin 14.2 13.5 - 17.5 g/dL LAB HEMETOLOGY METHOD 09/19/2024 4:53 PM EDT [facility] Hematocrit 41.7(L) 42.0 - 54.0 % LAB HEMETOLOGY METHOD 09/19/2024 4:53 PM EDT [facility] MCV 93.5 79.0 - 98.0 FL LAB HEMETOLOGY METHOD 09/19/2024 4:53 PM EDT [facility] MCH 31.8 27.0 - 32.0 pcg LAB HEMETOLOGY METHOD 09/19/2024 4:[facility] MCHC 34.1 32.0 - 37.0 g/dL LAB HEMETOLOGY METHOD 09/19/2024 4:53 [facility] RDW 13.4 11.0 - 15.0 % LAB HEMETOLOGY METHOD 09/19/2024 4:53 PM [facility] Platelets 156 130 - 400 K/mcL LAB HEMETOLOGY METHOD 09/19/2024 4:53 PM [facility] MPV 11.6(H) 7.0 - 11.0 FL LAB HEMETOLOGY METHOD 09/19/2024 4:53 PM [facility] NRBC 0.0 <1.0 % LAB HEMETOLOGY METHOD 09/19/2024 4:53 PM [facility] NRBC Absolute 0.00 <0.10 K/mcL LAB HEMETOLOGY METHOD 09/19/2024 4:53 PM [facility] Neutrophils Relative 91.3 % LAB HEMETOLOGY METHOD 09/19/2024 4:53 PM [facility] Lymphocytes Relative 4.8 % LAB HEMETOLOGY METHOD 09/19/2024 4:53 PM [facility] Monocytes Relative 3.0 % LAB HEMETOLOGY METHOD 09/19/2024 4:53 PM [facility] Eosinophils Relative 0.0 % LAB HEMETOLOGY METHOD 09/19/2024 4:53 PM [facility] Basophils Relative 0.2 % LAB HEMETOLOGY METHOD 09/19/2024 4:53 PM [facility] Immature Granulocytes Relative 0.7 % LAB HEMETOLOGY METHOD 09/19/2024 4:53 PM [facility] Neutrophils Absolute 16.92(H) 1.50 - 7.00 K/mcL LAB HEMETOLOGY METHOD 09/19/2024 4:53 PM [facility] Lymphocytes Absolute 0.88(L) 1.00 - 5.00 K/mcL LAB HEMETOLOGY METHOD 09/19/2024 4:53 PM EDT [facility] Monocytes Absolute 0.56 0.20 - 1.00 [facility] LAB HEMETOLOGY METHOD 09/19/2024 4:53 PM EDT [facility] Eosinophils Absolute 0.00 0.00 - 0.50 [facility] LAB HEMETOLOGY METHOD 09/19/2024 4:53 PM EDT [facility] Basophils Absolute 0.03 0.00 - 0.20 [facility] LAB HEMETOLOGY METHOD 09/19/2024 4:53 PM EDT [facility] Immature Granulocytes Absolute 0.13(H) 0.00 - 0.03 [facility] LAB HEMETOLOGY METHOD 09/19/2024 4:53 PM EDT [facility] Blood Venous blood specimen / Unknown Venipuncture / Unknown 09/19/2024 3:40 PM EDT 09/19/2024 4:32 PM EDT Cherelle WOOD LAB BLOOD ORDERABLES Final R esult [facility] [address] [place] [address], * Iron and TIBC (09/19/2024 3:40 PM EDT) Iron 114 50 - 160 mcg/dL LAB CHEMISTRY METHOD 09/19/2024 7:09 PM EDT [facility] TIBC 298 250 - 450 mcg/dL LAB CHEMISTRY METHOD 09/19/2024 7:09 PM EDT [facility] Iron Saturation 38 20 - 50 % LAB CHEMISTRY METHOD 09/19/2024 7:09 PM EDT [facility] Blood Venous blood specimen / Unknown Venipuncture / Unknown 09/19/2024 3:40 PM EDT 09/19/2024 4:37 PM EDT [facility]ra[facility] LAB BLOOD ORDERABLES Final R esult [facility] [address] [place] [address], [place] [phone] * Smooth muscle antibody IgG (09/19/2024 3:40 PM EDT) Smooth Muscle (F-Actin) IgG Ab 6 <20 UNITS 09/23/2024 2:26 PM EDT [facility] Comment: Interpretation: Negative Test performed at [facility], [address], [place] [address] Ayaka Grover MD, PhD - Eyeglass Fitter Blood Venous blood specimen / Unknown Venipuncture / Unknown 09/19/2024 3:40 PM EDT 09/19/2024 4:38 PM EDT [facility]ra[facility]isi WOOD LAB BLOOD ORDERABLES Final R esult Performing Organization Address [facility]/ZIP Co de Phone Number [facility] [address] [place] [address] * Hepatitis A antibody IgM (09/19/2024 3:40 PM EDT) Pathologist [facility] Hepatitis A Antibody IgM Negative Negative LAB CHEMISTRY METHOD 09/19/2024 9:20 PM EDT [facility] Blood Venous blood specimen / Unknown Venipuncture / Unknown 09/19/2024 3:40 PM EDT 09/19/2024 4:37 PM EDT Narrative [facility] - 09/19/2024 9:20 PM EDT Over the counter supplements containing high doses of biotin may interfere with this assay. If interference is suspected, patients shoud be retested after refraining from biotin supplements for 72 hours. KendraBisi WOOD LAB BLOOD ORDERABLES Final R esult [facility] [address] [place] [address], [place] [phone] * Tissue transglutaminase, IgA (09/19/2024 3:40 PM EDT) [facility] Tissue Transglutaminase Ab, IgA Quant 1 <4 unit/mL LAB CHEMISTRY METHOD 09/25/2024 11:06 AM EDT [facility] Tissue Transglutaminase Ab, IgA Negative Negative LAB CHEMISTRY METHOD 09/25/2024 11:06 AM EDT [facility] Blood Venous blood specimen / Unknown Venipuncture / Unknown 09/19/2024 3:40 PM EDT 09/19/2024 4:35 PM EDT Cherelle WOOD LAB BLOOD ORDERABLES Final R esult [facility] [address] [place] [address], [place] [phone] * Ceruloplasmin (09/19/2024 3:40 PM EDT) [facility] Ceruloplasmin 21 20 - 60 mg/dL 09/23/2024 4:43 AM EDT [facility] Comment: Test performed at [facility], [address] [place], [place] [id number] Ayaka Grover MD, PhD - Eyeglass Fitter Blood Venous blood specimen / Unknown Venipuncture / Unknown 09/19/2024 3:40 PM EDT 09/19/2024 4:38 PM EDT Cherelle WOOD LAB BLOOD ORDERABLES Final R esult [facility] [address] [place] [address] * Alpha fetoprotein tumor marker (09/19/2024 3:40 PM EDT) [facility] AFP <2.5 0.0 - 8.0 ng/mL LAB CHEMISTRY METHOD 09/19/2024 7:20 PM EDT [facility] Blood Venous blood specimen / Unknown Venipuncture / Unknown 09/19/2024 3:40 PM EDT 09/19/2024 4:37 PM EDT Narrative [facility] - 09/19/2024 7:20 PM EDT The Siemens Advia Centaur Chemiluminescent Immunoassay is used. Results obtained with different assay methods or kits cannot be used interchangeably. Results cannot be interpreted as absolute evidence of the presence or absence of malignant disease. Cherelle WOOD LAB BLOOD ORDERABLES Final R esult Performing Organization Address [facility] Co de Phone Number [facility] [address] [place] [address], [place] [phone] * Hepatitis B core antibody, total (09/19/2024 3:40 PM EDT) Hep B Core Total Ab Negative Negative LAB CHEMISTRY METHOD 09/19/2024 8:00 PM EDT [facility] Blood Venous blood specimen / Unknown Venipuncture / Unknown 09/19/2024 3:40 PM EDT 09/19/2024 4:37 PM EDT Cherelle WOOD LAB BLOOD ORDERABLES Final R esult [facility] [address] [place] [address], [place] [phone] * Antimitochondrial antibody (09/19/2024 3:40 PM EDT) Mitochondrial Antibody Quantitative 1.9 <=20.0 units LAB CHEMISTRY METHOD 09/25/2024 11:28 AM EDT [facility] Mitochondrial Antibody Qualitative Negative Negative LAB CHEMISTRY METHOD 09/25/2024 11:28 AM EDT [facility] Blood Venous blood specimen / Unknown Venipuncture / Unknown 09/19/2024 3:40 PM EDT 09/19/2024 4:35 PM EDT Cherelle WOOD LAB BLOOD ORDERABLES Final R esult Performing Organization Address [facility]/ZIP Co de Phone Number [facility] [address] [place] [address], * (ABNORMAL) Hepatitis B surface antibody (09/19/2024 3:40 PM EDT) Pathologist [facility] Hepatitis B Surface Ab Positive (A) Negative LAB CHEMISTRY METHOD 09/19/2024 7:20 PM EDT [facility] Hepatitis B Surface Ab Quantitative 47.5 mIU/mL LAB CHEMISTRY METHOD 09/19/2024 7:20 PM EDT [facility] Blood Venous blood specimen / Unknown Venipuncture / Unknown 09/19/2024 3:40 PM EDT 09/19/2024 4:37 PM EDT Narrative [facility] - 09/19/2024 7:20 PM EDT >=10 mIU/mL is considered to be consistent with immunity. Cherelle WOOD LAB BLOOD ORDERABLES Final R esult Performing Organization Address City/[facility] Co de Phone Number [facility] [address] [place] [address], [place] [phone] * (ABNORMAL) Prothrombin time with INR (09/19/2024 3:40 PM EDT) Pathologist [facility] Protime 16.7(H) 10.6 - 13.9 sec LAB COAGULATION METHOD 09/19/2024 5:01 PM EDT [facility] INR 1.3 LAB COAGULATION METHOD 09/19/2024 5:01 PM EDT [facility] Blood Venous blood specimen / Unknown Venipuncture / Unknown 09/19/2024 3:40 PM EDT 09/19/2024 4:33 PM EDT Cherelle WOOD LAB BLOOD ORDERABLES Final R esult [facility] [address] [place] [address], * Protein electrophoresis, serum (09/19/2024 3:40 PM EDT) Total Protein 6.9 6.0 - 8.0 g/dL LAB CHEMISTRY METHOD 09/24/2024 9:28 AM EDT [facility] Albumin, Serum 3.9 2.9 - 4.1 g/dL LAB CHEMISTRY METHOD 09/24/2024 9:28 AM EDT [facility] Alpha 1 Globulin (g/dL) 0.2 0.1 - 0.5 g/dL LAB CHEMISTRY METHOD 09/24/2024 9:28 AM EDT [facility] Alpha 2 Globulin (g/dL) 0.8 0.7 - 1.5 g/dL LAB CHEMISTRY METHOD 09/24/2024 9:28 AM T [facility] Beta (g/dL) 1.1 0.7 - 1.5 g/dL LAB CHEMISTRY METHOD 09/24/2024 9:28 AM EDT [facility] Gamma Globulin (g/dL) 0.9 0.7 - 1.9 g/dL LAB CHEMISTRY METHOD 09/24/2024 9:28 AM [facility] SPEP Interpretation Essentially normal pattern. No M-Guevara seen. LAB CHEMISTRY METHOD 09/24/2024 9:28 AM [facility] Blood Venous blood specimen / Unknown Venipuncture / Unknown 09/19/2024 3:40 PM EDT 09/19/2024 4:35 PM EDT KendraBisi WOOD LAB BLOOD ORDERABLES Final R esult Performing Organization Address City/[facility]/ZIP Co de Phone Number [facility] [address] [place] [address], [place] [phone] * Protein, total (09/19/2024 3:40 PM EDT) Pathologist [facility] Total Protein 6.9 6.0 - 8.0 g/dL LAB CHEMISTRY METHOD 09/19/2024 5:39 PM EDT [facility] Blood Venous blood specimen / Unknown Venipuncture / Unknown 09/19/2024 3:40 PM EDT 09/19/2024 4:35 PM EDT KendraBisi WOOD LAB BLOOD ORDERABLES Final R esult Performing Organization Address [facility]/ZIP Co de Phone Number [facility] [address] [place] [address], [place] [phone] * (ABNORMAL) Immunoglobulin IgA (09/19/2024 3:40 PM EDT) [facility] IgA 355(H) 61 - 348 mg/dL LAB CHEMISTRY METHOD 09/19/2024 7:09 PM EDT [facility] Blood Venous blood specimen / Unknown Venipuncture / Unknown 09/19/2024 3:40 PM EDT 09/19/2024 4:37 PM EDT Bernardokatie WOOD LAB BLOOD ORDERABLES Final R esult Performing Organization Address City/[facility]/ZIP Co de Phone Number [facility] [address] [place] [address], [place] [phone] * Ferritin (09/19/2024 3:40 PM EDT) Pathologist [facility] Ferritin 108 26 - 388 ng/mL LAB CHEMISTRY METHOD 09/19/2024 7:09 PM EDT [facility] Blood Venous blood specimen / Unknown Venipuncture / Unknown 09/19/2024 3:40 PM EDT 09/19/2024 4:37 PM EDT Cherelle WOOD LAB BLOOD ORDERABLES Final R esult [facility] [address] [place] [address], [place] [phone] * (ABNORMAL) Comprehensive metabolic panel (09/19/2024 3:40 PM EDT) Sodium 141 133 - 145 mmol/L LAB CHEMISTRY METHOD 09/19/2024 7:09 PM [facility] Potassium 3.9 3.5 - 5.5 mmol/L LAB CHEMISTRY METHOD 09/19/2024 7:09 PM [facility] Chloride 106 96 - 110 mmol/L LAB CHEMISTRY METHOD 09/19/2024 7:09 PM [facility] CO2 27 21 - 32 mmol/L LAB CHEMISTRY METHOD 09/19/2024 7:09 PM [facility] Anion Gap 8 3 - 11 LAB CHEMISTRY METHOD 09/19/2024 7:09 PM [facility] Glucose 205(H) 70 - 100 mg/dL LAB CHEMISTRY METHOD 09/19/2024 7:09 PM [facility] BUN 34(H) 5 - 25 mg/dL LAB CHEMISTRY METHOD 09/19/2024 7:09 PM [facility] Creatinine 1.74(H) 0.70 - 1.30 mg/dL LAB CHEMISTRY METHOD 09/19/2024 7:09 PM [facility] eGFR 41(L) >=60 mL/min/1. 73m2 LAB CHEMISTRY METHOD 09/19/2024 7:09 PM [facility] Comment:Calculation based on the Chronic Kidney Disease Epidemiology Collaboration (CKD-EPI) equation refit without adjustment for race. BUN/Creatinine Ratio 19.5 LAB CHEMISTRY METHOD 09/19/2024 7:09 PM T [facility] Calcium 9.3 8.5 - 10.5 mg/dL LAB CHEMISTRY METHOD 09/19/2024 7:09 PM [facility] AST (SGOT) 29 10 - 42 unit/L LAB CHEMISTRY METHOD 09/19/2024 7:09 PM [facility] ALT (SGPT) 58 10 - 60 unit/L LAB CHEMISTRY METHOD 09/19/2024 7:09 PM [facility] Alkaline Phosphatase 129(H) 42 - 121 unit/L LAB CHEMISTRY METHOD 09/19/2024 7:09 PM [facility] Total Protein 7.0 6.0 - 8.0 g/dL LAB CHEMISTRY METHOD 09/19/2024 7:09 PM [facility] Albumin 4.0 3.2 - 5.0 g/dL LAB CHEMISTRY METHOD 09/19/2024 7:09 PM [facility] Total Bilirubin 0.7 0.0 - 1.4 mg/dL LAB CHEMISTRY METHOD 09/19/2024 7:09 PM [facility] Blood Venous blood specimen / Unknown Venipuncture / Unknown 09/19/2024 3:40 PM EDT 09/19/2024 4:37 PM EDT Cherelle WOOD LAB BLOOD ORDERABLES Final R esult [facility] [address] [place] [address], * External clinical lab (09/19/2024) us Provider [facility] BLOOD ORDERABLES Fin al Result from Last 3 Months Insurance [facility] MEDICARE [facility] [place] [facility] Care Teams Rate And Cost Analyst Relationship Specialty Start Date End Date Christy Darden NP [address] [place] [phone] PCP - General Nurse Practitioner 08/19/24
--- OUTSIDE RECORDS SUMMARY | 2024-10-29 13:40 | XMS_ITS | Encounter Summary ---
Author Organization [facility], Address [address] [place] [address] Phone Care Team Providers Care Early Head Start Director Name Role Phone Christy Darden PARTS COUNTERPERSON Primary Care Provider Encounter Details Date Type Department Care Team (Late st Contact Info) Description 02/28/2022 Documentation Only [facility], [address] [place] [phone] Christy Darden, DAI [address] [place] [address] Social History Tobacco Use Types Packs/Day Years [...] Care Team (Late st Contact Info) Description 12/31/2024 9:30 AM EDT Office Visit [facility] [address] [phone] Jacqueline Mckenzie ARNP [address] [phone] documented as of this encounter Visit Diagnoses Not on filedocumented in this encounter Care Teams Early Head Start Director Relationship Specialty Start Date End Date Christy Darden NP [address] [place] [address] PCP - General Nurse Practitioner 02/28/22 documented as of this encounter
[2024-10-29 14:51] LABS: Parathyroid Hormone Intact 130.0 pg/mL (8.7-77.1)
[2024-10-29 14:55] LABS: Alanine Aminotransferase 57 U/L (0-40); Aspartate Amino Transferase 49 U/L (5-37); Uric Acid 5.3 mg/dL (3.4-7.0)
[2024-10-29 18:42] LABS: Microalbum/Creatinine Ratio Ur 32.3 ug/mg cr (<30); Protein/Creatinine Ratio, Ur 0.09 (<0.2); Total Protein Urine Random 15 mg/dL (<12)
== END 2024-10-29 12:56 | disposition home or self-care (01) ==
LOC: HO.WFDLDS 12:55
PROVIDERS: Referring Provider Internal Medicine Nephrology; Visit Provider Internal Medicine Rheumatology
DX: I12.9 Hypertensive chronic kidney disease with stage 1 through stage 4 chronic kidney disease, or unspecified chronic kidney disease (principal); N18.32 Chronic kidney disease, stage 3b; M1A.37 Chronic gout due to renal impairment, ankle and foot; M06.9 Rheumatoid arthritis, unspecified; Z79.899 Other long term (current) drug therapy
CPT/HCPCS: 36415; 82043; 82570; 83970; 84156; 84450; 84460; 84550

== ENCOUNTER 2024-10-31 08:16 | Outpatient (AMB) | payer MEDICARE, SELFPAY ==
--- NOTE | 2024-10-31 08:21 | A.OFFVIS_ITS ---
Vital Signs 10/31/24 08:22 Height 5 ft 2 in Weight 149 lb 7.574 oz BMI 27.3 BP 130/70 Blood Pressure Location Lt brachial Position Sitting Pulse 39 L Pulse Source Pulse Oximeter Pulse Oximetry (%) 96 Oxygen Delivery Method Room Air Intake Visit Reasons: 3 Months Intake Note: Patient presents today for an Rheumatoid arthritis follow up. Accompanied by: self Allergies erythromycin base Allergy (Mild, Verified 10/31/24 08:21) Unknown ticlopidine (From Ticlid) Allergy (Mild, Verified 10/31/24 08:21) Rash cotrast dye Allergy (Severe, Uncoded 02/08/24 09:36) Anaphylaxis bee sting Allergy (Intermediate, Uncoded 02/08/24 09:36) Anaphylaxis HPI HPI 3 Months: Details: He had an evaluation by GI. Workup done September 19 reveals normal liver enzymes. He will be having endoscopy to check for varicose veins. He feels well. Morning stiffness is 30 minutes. He had an eye exam a few weeks ago an risk investigator told him to consider discontinuing hydroxychloroquine due to new development of glaucoma. Physical Exam Vital Signs: Last Vital Signs Pulse 39 L 10/31/24 08:22 BP 130/70 10/31/24 08:22 Pulse Ox 96 10/31/24 08:22 Oxygen Delivery Method Room Air 10/31/24 08:22 BMI result Body Mass Index 27.3 Const Other: General: Comfortable CVS: RRR Respiratory: clear to auscultation bilaterally. Good respiratory effort Skin: No lesions seen MSK: Left CMC squaring present without tenderness on palpation. No synovitis. Shoulder abduction 160 degrees bilaterally. Good internal external rotation of shoulders. Knee flexion 120 degrees bilaterally. No ankle or MTP tenderness Assessment & Plan Assessment & Plan (1) Rheumatoid arthritis: Comment: Inflammatory arthritis is in remission on Actemra and hydroxychloroquine 150 mg daily. He is taking hydroxychloroquine 150 mg daily instead of 300 mg daily, which is more appropriate for his weight. He had an eye exam recently and is risk investigator's advised him to discontinue hydroxychloroquine due to new diagnosis of coma. Hydroxychloroquine commonly does not contribute to glaucoma but since patient is not taking medicine at a therapeutic dose, I will trial off of hydroxychloroquine. He had LFTs checked recently, which are now normal. White blood cell count was elevated on September labs but he does not report any infection. Rheumatology history: 73-year-old male with history of seronegative rheumatoid arthritis initially presenting as PMR mimic with right MTP synovitis on initial presentation. He continued to develop polyarthralgias left MCP synovitis when prednisone was tapered when he was being treated for PMR initially. Hence swelling resolved on low-dose prednisone. He developed hyperglycemia (history of IDDM) on low-dose prednisone and was able to adjust via insulin pump. Methotrexate started August 2020 to 11/06/2021 due to pneumonitis on CT chest likely due to methotrexate toxicity. Humira started 06/06/2021 to 07/07/2021 but discontinued due to pneumonia and shingles. He has remained on hydroxychloroquine since 01/06/2022. He is also controlled on Actemra subcutaneous injection weekly. Code(s): M06.9 - Rheumatoid arthritis, unspecified Category: Medical Qualifiers: Rheumatoid arthritis location: multiple sites Rheumatoid factor presence: without rheumatoid factor Qualified Code(s): M06.09 - Rheumatoid arthritis without rheumatoid factor, multiple sites Plan: Discontinue hydroxychloroquine. Requesting recent eye exam report Continue Actemra 162 mg every other week Labs for drug monitoring on high-risk medication ordered for patient to do fasting with lipid panel. He will have AST and ALT checked at [facility] at his upcoming appointment with GI of November GI follow-up Dr. 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 Risk factor: hx CKD. 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 Gout is controlled on allopurinol 300 mg daily. Code(s): M10.9 - Gout, unspecified Category: Medical Qualifiers: Chronicity: chronic Gout etiology: due to renal impairment Gout site: toe Laterality: right Presence of tophus: with tophus Qualified Code(s): M1A.3711 - Chronic gout due to renal impairment, right ankle and foot, with to phus (tophi) Plan: Continue allopurinol 300 mg daily Return to clinic in 3 months (5) Other termination clerk (current) drug therapy: Code(s): Z79.899 - Other termination clerk (current) drug therapy Category: Medical Plan: See above (6) ILD (interstitial lung disease): Comment: Stable. 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 PFT 05/2022 mild restrictive ventilatory defect, and mild diffusion capacity impairment consistent with ILD. 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 He follows up with [facility] mba internship Dr. Carlitos Phelan. Code(s): J84.9 - Interstitial pulmonary disease, unspecified Category: Medical Plan: He follows up with pulmonology at [facility] Orders: Orders Lipid Panel Today M06.09 - Rheumatoid arthritis without rheumatoid factor, multiple sites, Z79.1 - termination clerk (current) use of non-steroidal anti- inflammatories (NSAID) Creatinine Today M06.09 - Rheumatoid arthritis without rheumatoid factor, multiple sites, Z79.1 - [facility] (current) use of non-steroidal anti- inflammatories (NSAID), Z79.899 - Other termination clerk (current) drug therapy Erythrocyte Sedimentation Rate Today M06.09 - Rheumatoid arthritis without rheumatoid factor, multiple sites, Z79.1 - [facility] (current) use of non- steroidal anti-inflammatories (NSAID), Z79.899 - Other termination clerk (current) drug therapy Aspartate Amino Transferase 2 Weeks Z79.899 - Other group home (current) drug therapy Alanine Aminotransferase 2 Weeks Z79.899 - Other termination clerk (current) drug therapy Complete Blood Count Auto Diff Today M06.09 - Rheumatoid arthritis without rheumatoid factor, multiple sites, Z79.1 - [facility] (current) use of non- steroidal anti-inflammatories (NSAID), Z79.899 - Other group home (current) drug therapy C Reactive Protein Today M06.09 - Rheumatoid arthritis without rheumatoid factor, multiple sites, Z79.1 - termination clerk (current) use of non-steroidal anti- inflammatories (NSAID), Z79.899 - Other termination clerk (current) drug therapy Absolute Neutrophil Count Today M06.09 - Rheumatoid arthritis without rheumatoid factor, multiple sites, Z79.1 - [facility] (current) use of non- steroidal anti-inflammatories (NSAID), Z79.899 - Other termination clerk (current) drug therapy Medications: Refilled Actemra (tocilizumab) Inject SQ every other week PA approved. 162 mg (0.9 mL) subcut Q2W 1.8 mL 2RF NS Discontinued allopurinol Discontinued Reason: Doctor's Order 200 mg (2 x 100 mg) PO DAILY 60 tabs 11RF allopurinol Take 1.5 tablet daily for total dose of 150mg daily Discontinued Reason: Doctor's Order 50 mg (1/2 x 100 mg) PO DAILY 15 tabs 11RF Coding Level of Care Code Est Pt Level 4 (97708) Complex EM visit Add On G2211 Diagnoses Rheumatoid arthritis of multiple sites with negative rheumatoid factor M06.09 Rheumatoid arthritis location: multiple sites Rheumatoid factor presence: without rheumatoid factor Transaminitis R74.01 Cirrhosis K74.60 Chronic gout due to renal impairment involving toe of right foot with tophus M1A.3711 Chronicity: chronic Gout etiology: due to renal impairment Gout site: toe Laterality: right Presence of tophus: with tophus Other group home (current) drug therapy Z79.899 ILD (interstitial lung disease) J84.9
[2024-10-31 08:22] VITALS: BP 130/70; PULSE 39; O2SAT 96; BMI 27.3
--- OUTSIDE RECORDS SUMMARY | 2024-10-31 08:27 | XMS_ITS | Encounter Summary ---
Author Organization [facility] Address [address] [place] [address] Care Team Providers Care Experience Design Director Name Role Phone Christy Darden NP Primary Care Provider + [phone] Reason for Visit * Reason Onset Date Comments Anticoagulation 10/30/2024 EGD on 11/27/24 w lonnie Pate Encounter Details Date Type Department Care Team (Late st Contact Info) Description 10/30/2024 Telephone Gastroenterology - [place] [address] [place] [address] Pearl Pritchett LPN Anticoagulation (EGD on 11/27/[address] Pate) Social History Tobacco Use Types Packs/Day Years Used Date Smoking Tobacco: Never Assessed Sex and Gender Information Value Date Recorded Sex Assigned at Not on file Legal Sex Male 8:24 PM EST Gender Identity Not on file Sexual Orientation Not on file documented as of this encounter Progress Notes * Pearl Pritchett LPN - 10/30/2024 2:50 PM EDT Spoke with pt, he is not taking plavix, he takes eliquis, sees Dr Garcia with [facility] cardio. Spoke with Max[facility] at [facility] cardio, requesting approval for pt to hold eliquis for 2 days before procedure. * Pearl Pritchett LPN - 10/30/2024 11:46 AM EDT EGD on 11/27/24, Left msg for pt to call back, need to know who prescribes eliquis and plavix. documented in this encounter Plan of Treatment Upcoming Encounters Date Type Department Care Team (Late st Contact Info) Description 11/27/2024 8:15 AM EDT Hospital Encounter [facility] [address] [place] [phone] Gilmar Pate MD [address] [facility] [address] [place] [phone] 03/24/2025 9:10 AM EST Office Visit Gastroenterology - [address] [phone] Cherelle Feliz PA [address] [address] documented as of this encounter Visit Diagnoses Not on filedocumented in this encounter Care Teams Experience Design Director Relationship Specialty Start Date End Date Christy Darden NP [address] [place] [phone] PCP - General Nurse Practitioner 08/19/24 documented as of this encounter
--- OUTSIDE RECORDS SUMMARY | 2024-10-31 08:27 | XMS_ITS | Encounter Summary ---
Author Organization [facility], Address [address] [place] [address] Phone Care Team Providers Care Mapping Supervisor Name Role Phone Christy Darden FULL STACK DEVELOPER Primary Care Provider Encounter Details Date Type Department Care Team (Late st Contact Info) Description 02/28/2022 Documentation Only [facility], [address] [place] [phone] Christy Darden, DAI [address] [place] [address] Social History Tobacco Use Types Packs/Day Years [...] Visit [facility] [address] [phone] Jacqueline Mckenzie ARNP [address] [phone] documented as of this encounter Visit Diagnoses Not on filedocumented in this encounter Care Teams Mapping Supervisor Relationship Specialty Start Date End Date Christy Darden NP [address] [place] [address] PCP - General Nurse Practitioner 02/28/22 documented as of this encounter
== END 2024-10-31 08:56 | disposition home or self-care (01) ==
LOC: HO.RHES 08:19
PROVIDERS: PCP Nurse Practitioner Family; Visit Provider Internal Medicine Rheumatology
DX: M06.09 Rheumatoid arthritis without rheumatoid factor, multiple sites (principal); R74.01 Elevation of levels of liver transaminase levels; K74.60 Unspecified cirrhosis of liver; M1A.37 Chronic gout due to renal impairment, ankle and foot; Z79.899 Other long term (current) drug therapy; J84.9 Interstitial pulmonary disease, unspecified
CPT/HCPCS: 99214; G2211

== ENCOUNTER → 2024-10-31 08:16 | Outpatient (BNVA) | payer MEDICARE, SELFPAY | PROVIDERS: PCP Nurse Practitioner Family; Visit Provider Internal Medicine Rheumatology | DX: M06.09 Rheumatoid arthritis without rheumatoid factor, multiple sites (principal); R74.01 Elevation of levels of liver transaminase levels; K74.60 Unspecified cirrhosis of liver; M1A.37 Chronic gout due to renal impairment, ankle and foot; J84.9 Interstitial pulmonary disease, unspecified; Z79.899 Other long term (current) drug therapy | CPT/HCPCS: 99212 ==

== ENCOUNTER 2024-12-27 11:06 | Outpatient (REF) | payer MEDICARE, SELFPAY ==
[2024-12-27 14:13] LABS: MANUAL DIFF FLAG NO
[2024-12-27 14:22] LABS: Hematocrit 39.6 % (42.0-52.0); Hemoglobin 13.6 g/dl (14.0-18.0); Imm Gran Abs Auto 0.04 X10*3/uL (0.00-0.03); Imm Gran Pct Auto 0.5 % (0.0-0.4); Lymphocytes Absolute Auto 1.8 X10*3/uL (1.2-4.9); Mean Corpuscular HGB Conc 34.3 g/dl (31.0-36.0); Mean Corpuscular Hemoglobin 31.6 pg (27.0-33.0); Mean Corpuscular Volume 92.1 fL (80.0-98.0); NRBC Abs Auto 0.000 X10*3/uL (0.0-0.012); NRBC Pct Auto 0.0 /100WBC (0.0-0.2); Neut%MD 67.4 %; Platelet Count 152 X10*3/uL (160-400); Red Blood Count 4.30 X10*6/uL (4.60-5.80); WBCANC 8.5 X10*3/uL; White Blood Count 8.5 X10*3/uL (4.8-10.8)
[2024-12-27 14:30] LABS: Alanine Aminotransferase 48 U/L (0-40); Aspartate Amino Transferase 59 U/L (5-37); Cholesterol 112 mg/dL (<200); Estimated Glomerular Filt Rate 45; HDL Cholesterol 33 mg/dL (>40); Triglycerides 141 mg/dL (<150); Uric Acid 4.7 mg/dL (3.4-7.0)
== END 2024-12-27 11:07 | disposition home or self-care (01) ==
LOC: HO.WFDLDS 11:06
PROVIDERS: Visit Provider Internal Medicine Rheumatology
DX: M06.09 Rheumatoid arthritis without rheumatoid factor, multiple sites (principal); Z79.899 Other long term (current) drug therapy; Z79.1 Long term (current) use of non-steroidal anti-inflammatories (NSAID)
CPT/HCPCS: 36415; 80061; 82565; 84450; 84460; 84550; 85025; 85652; 86140

== ENCOUNTER 2025-02-04 08:16 | Outpatient (AMB) | payer MEDICARE, SELFPAY ==
--- NOTE | 2025-02-04 08:17 | A.OFFVIS_ITS ---
Vital Signs 02/04/25 08:20 Height 5 ft 2 in Weight 149 lb 8 oz BMI 27.3 BP 130/78 Blood Pressure Location Lt brachial Position Sitting Pulse 44 L Pulse Source Pulse Oximeter Pulse Oximetry (%) 99 Oxygen Delivery Method Room Air Intake Visit Reasons: 3months Intake Note: Patient presents for 3 month follow up on Luggage Liner Required: No Accompanied by: Self / Same As Patient Allergies erythromycin base Allergy (Mild, Verified 02/04/25 08:22) Unknown ticlopidine (From Ticlid) Allergy (Mild, Verified 02/04/25 08:22) Rash cotrast dye Allergy (Severe, Uncoded 02/04/25 08:22) Anaphylaxis bee sting Allergy (Intermediate, Uncoded 02/04/25 08:22) Anaphylaxis HPI HPI 3months: Details: MS 1 hour. No new joint swelling. He continues to take HCQ. He had an admission 3-4 weeks ago and received 2 additional stents. He now has 25 stents. Left 5th finger is triggering. He had partial benefit with cortisone injection for treatment of left trigger finger thumb. He experienced hyperglycemia for cortisone injection. [facility] Surgical History (Updated 02/04/25 @ 08:26 by Marisela Choi [facility]) History of coronary artery stent placement Physical Exam Vital Signs: Last Vital Signs Pulse 44 L 02/04/25 08:20 BP 130/78 02/04/25 08:20 Pulse Ox 99 02/04/25 08:20 Oxygen Delivery Method Room Air 02/04/25 08:20 BMI result Body Mass Index 27.3 Const Other: General: Comfortable CVS: RRR Respiratory: clear to auscultation bilaterally. Good respiratory effort Skin: No lesions seen MSK: Left CMC squaring present without tenderness on palpation. No synovitis. Shoulder abduction 160 degrees bilaterally. Good internal external rotation of shoulders. Knee flexion 120 degrees bilaterally. No ankle or MTP tenderness. triggering of left thumb and 5th finger observed. He has nodule palmar aspect of left MCP, which is tender. Assessment & Plan Assessment & Plan (1) Rheumatoid arthritis: Comment: Inflammatory arthritis is in remission on Actemra and hydroxychloroquine 150 mg daily. He is taking hydroxychloroquine 150 mg daily instead of 300 mg daily, which is more appropriate for his weight. He had an eye exam and is commercial sales manager's advised him to discontinue hydroxychloroquine due to new diagnosis of glaucoma. Hydroxychloroquine commonly does not contribute to glaucoma but since patient is not taking medicine at a therapeutic dose, I will trial off of hydroxychloroquine. Rheumatology history: 73-year-old male with history of seronegative rheumatoid arthritis initially presenting as PMR mimic with right MTP synovitis on initial presentation. He continued to develop polyarthralgias left MCP synovitis when prednisone was tapered when he was being treated for PMR initially. Hence swe lling resolved on low-dose prednisone. He developed hyperglycemia (history of IDDM) on low-dose prednisone and was able to adjust via insulin pump. Methotrexate started August 2020 to 11/06/2021 due to pneumonitis on CT chest likely due to methotrexate toxicity. Humira started 06/06/2021 to 07/07/2021 but discontinued due to pneumonia and shingles. He has remained on hydroxychloroquine since 01/06/2022. He is also controlled on Actemra subcutaneous injection weekly. Code(s): M06.9 - Rheumatoid arthritis, unspecified Category: Medical Qualifiers: Rheumatoid arthritis location: multiple sites Rheumatoid factor presence: without rheumatoid factor Qualified Code(s): M06.09 - Rheumatoid arthritis without rheumatoid factor, multiple sites Plan: Discontinue hydroxychloroquine. Requesting recent eye exam report Dr. Alberto [facility] Eye care x2 request Continue Actemra 162 mg every other week Labs for drug monitoring on high-risk medication ordered for patient to do fasting with lipid panel in 2 months. 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 Risk factor: hx CKD. 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 Gout is controlled on allopurinol 300 mg daily. 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 PFT 05/2022 mild restrictive ventilatory defect, and mild diffusion capacity impairment consistent with ILD. 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 He follows up with [facility] evidence specialist Dr. Carlitos Phelan. Code(s): J84.9 - Interstitial pulmonary disease, unspecified Category: Medical Plan: He follows up with pulmonology at [facility] (7) Trigger finger of left thumb: Comment: Recurrent after cortisone injection. He experiences hyperglycemia after cortisone injections and would like to avoid it. Code(s): M65.312 - Trigger thumb, left thumb Category: Medical Plan: OT ordered with splinting Consider hand surgery referral if he has no benefit with conservative management (8) Trigger finger, left little finger: Code(s): M65.352 - Trigger finger, left little finger Category: Medical Plan: OT ordered with splinting Orders: Orders Complete Blood Count Auto Diff 2 Months Z79.899 - Other group home (current) drug therapy Creatinine 2 Months Z79.899 - Other group home (current) drug therapy C Reactive Protein 2 Months Z79.899 - Other group home (current) drug therapy OT Evaluation and Treatment Today M65.312 - Trigger thumb, left thumb, M65.352 - Trigger finger, left little finger Alanine Aminotransferase 2 Months Z79.899 - Other group home (current) drug therapy Aspartate Amino Transferase 2 Months Z79.899 - Other equipment operator/laborer (current) drug therapy Erythrocyte Sedimentation Rate 2 Months Z79.899 - Other group home (current) drug therapy Absolute Neutrophil Count 2 Months Z79.899 - Other group home (current) drug therapy Lipid Panel 2 Months Z79.899 - Other group home (current) drug therapy Coding Level of Care Code Est Pt Level 4 (13846) Complex EM visit Add On G2211 Diagnoses Rheumatoid arthritis of multiple sites with negative rheumatoid factor M06.09 Rheumatoid arthritis location: multiple sites Rheumatoid factor presence: without rheumatoid factor Transaminitis R74.01 Cirrhosis K74.60 Chronic gout due to renal impairment involving toe of right foot with tophus M1A.3711 Chronicity: chronic Gout etiology: due to renal impairment Gout site: toe Laterality: right Presence of tophus: with tophus Other group home (current) drug therapy Z79.899 ILD (interstitial lung disease) J84.9 Trigger finger of left thumb M65.312 Trigger finger, left little finger M65.352
[2025-02-04 08:20] VITALS: BP 130/78; PULSE 44; O2SAT 99; BMI 27.3
== END 2025-02-04 08:56 | disposition home or self-care (01) ==
LOC: HO.RHES 08:16
PROVIDERS: PCP Nurse Practitioner Family; Visit Provider Internal Medicine Rheumatology
DX: M06.09 Rheumatoid arthritis without rheumatoid factor, multiple sites (principal); R74.01 Elevation of levels of liver transaminase levels; K74.60 Unspecified cirrhosis of liver; M1A.37 Chronic gout due to renal impairment, ankle and foot; Z79.899 Other long term (current) drug therapy; J84.9 Interstitial pulmonary disease, unspecified; M65.312 Trigger thumb, left thumb; M65.352 Trigger finger, left little finger
CPT/HCPCS: 99214; G2211

== ENCOUNTER → 2025-02-04 08:16 | Outpatient (BNVA) | payer MEDICARE, SELFPAY | PROVIDERS: PCP Nurse Practitioner Family; Visit Provider Internal Medicine Rheumatology | DX: M06.09 Rheumatoid arthritis without rheumatoid factor, multiple sites (principal); R74.01 Elevation of levels of liver transaminase levels; K74.60 Unspecified cirrhosis of liver; J84.9 Interstitial pulmonary disease, unspecified; M1A.37 Chronic gout due to renal impairment, ankle and foot; M65.352 Trigger finger, left little finger; M65.312 Trigger thumb, left thumb; Z95.5 Presence of coronary angioplasty implant and graft; Z79.899 Other long term (current) drug therapy | CPT/HCPCS: 99212 ==

== ENCOUNTER 2025-02-26 14:12 | Outpatient (REF) | payer MEDICARE, SELFPAY ==
[2025-02-26 18:28] LABS: MANUAL DIFF FLAG NO
[2025-02-26 18:47] LABS: Anion Gap 11 (12-20); Blood Urea Nitrogen 37 mg/dL (9-16); Calcium 9.1 mg/dL (8.4-10.2); Carbon Dioxide 28 mmol/L (22-29); Chloride 104 mmol/L (96-108); Estimated Glomerular Filt Rate 35; Potassium 4.1 mmol/L (3.3-5.1); Sodium 139 mmol/L (135-145)
[2025-02-26 18:51] LABS: Alanine Aminotransferase 53 U/L (0-40); Aspartate Amino Transferase 58 U/L (5-37); Cholesterol 110 mg/dL (<200); Estimated Glomerular Filt Rate 36; HDL Cholesterol 31 mg/dL (>40); Hematocrit 39.1 % (42.0-52.0); Hemoglobin 13.6 g/dl (14.0-18.0); Imm Gran Abs Auto 0.04 X10*3/uL (0.00-0.03); Imm Gran Pct Auto 0.5 % (0.0-0.4); Lymphocytes Absolute Auto 1.7 X10*3/uL (1.2-4.9); Mean Corpuscular HGB Conc 34.8 g/dl (31.0-36.0); Mean Corpuscular Hemoglobin 32.2 pg (27.0-33.0); Mean Corpuscular Volume 92.7 fL (80.0-98.0); NRBC Abs Auto 0.000 X10*3/uL (0.0-0.012); NRBC Pct Auto 0.0 /100WBC (0.0-0.2); Platelet Count 170 X10*3/uL (160-400); Red Blood Count 4.22 X10*6/uL (4.60-5.80); Triglycerides 155 mg/dL (<150); White Blood Count 7.6 X10*3/uL (4.8-10.8)
--- OUTSIDE RECORDS SUMMARY | 2025-02-26 22:13 | XMS_ITS | Encounter Summary ---
Author Organization [facility], Address [address] [place] [address] Phone Care Team Providers Care Account Support Analyst Name Role Phone Christy Darden SHEETING PULLER Primary Care Provider [phone] Encounter Details Date Type Department Care Team (Late st Contact Info) Description 02/28/2022 Documentation Only [facility], [address] [place] [phone] Christy Darden, DAI [address] [place] [address] Social History Tobacco Use Types Packs/Day Years [...] Care Team (Late st Contact Info) Description 03/03/2025 9:45 AM EST Office Visit [facility] [address] [phone] Jacqueline Mckenzie ARNP [address] [phone] documented as of this encounter Visit Diagnoses Not on filedocumented in this encounter Care Teams Account Support Analyst Relationship Specialty Start Date End Date Christy Darden NP [address] [place] [address] PCP - General Nurse Practitioner 02/28/22 documented as of this encounter
--- OUTSIDE RECORDS SUMMARY | 2025-02-26 22:13 | XMS_ITS | Encounter Summary ---
Author Organization [facility], Address [address] [place] [address] Phone Care Team Providers Care Coat Fitter Name Role Phone Christy Darden NP Primary Care Provider Encounter Details Date Type Department Care Team (Late st Contact Info) Description 03/07/2022 Documentation Only [facility], [address] [place] [phone] Maciej Sauceda MD [address] [place] [phone] Social History Tobacco Use Types Packs/Day Years [...] Visit [facility] [address] [place] [phone] Jacqueline Mckenzie ARNP [address] [phone] documented as of this encounter Visit Diagnoses Not on filedocumented in this encounter Care Teams Coat Fitter Relationship Specialty Start Date End Date Christy Darden NP [address] [place] [address] PCP - General Nurse Practitioner 02/28/22 documented as of this encounter
--- OUTSIDE RECORDS SUMMARY | 2025-02-26 22:14 | XMS_ITS | Encounter Summary ---
Author Organization [facility], Address [address] [place] [address] Phone Care Team Providers Care Stamp Pad Maker Name Role Phone Christy Darden EMS DIRECTOR Primary Care Provider Encounter Details Date Type Department Care Team (Late st Contact Info) Description 02/28/2022 Documentation Only [facility], [address] [place] [phone] Christy Darden, DAI [address] [place] [address] Social History Tobacco Use Types Packs/Day Years [...] Visit [facility] [address] [phone] Jacqueline Mckenzie ARNP [address] [phone] documented as of this encounter Visit Diagnoses Not on filedocumented in this encounter Care Teams Stamp Pad Maker Relationship Specialty Start Date End Date Christy Darden NP [address] [place] [address] PCP - General Nurse Practitioner 02/28/22 documented as of this encounter
--- OUTSIDE RECORDS SUMMARY | 2025-02-26 22:14 | XMS_ITS | Clinical Summary ---
Author Organization [facility] Address [address] [address] Phone Care Team Providers Care Whipper Name Role Phone Christy Darden NP Primary Care Provider [phone] Allergies Active Allergy Reactions Criticality Noted Date [...] mg by mouth every night 2 Active hydroxychloroqui ne (PLAQUENIL) 200 MG [...] thigh, or buttocks 1 (one) time Active [place]-3 Fatty Acids (Fish Oil) 1200 MG capsule delayed-release Take by mouth Active isosorbide mononitrate (IMDUR) 60 MG 24 hr tablet Take 90 mg by mouth 1 (one) time each day 3 Active ranolazine (RANEXA) 500 MG 12 hr tablet Take 500 mg by mouth 1 (one) time 4 Active Tocilizumab (Actemra) 162 MG/0.9ML solution prefilled syringe Inject under the skin Active lisinopril 40 MG tablet Take 40 mg by mouth 1 (one) time each day Active metoprolol succinate XL (TOPROL-XL) 100 MG 24 hr tablet Take 100 mg by mouth 1 (one) time each day Do not crush or chew. Active chlorthalidone 25 MG tablet Take 25 mg by mouth 1 (one) time each day Active cholecalciferol (VITAMIN D-3) 50 MCG (2000 UT) capsule Take 2,000 Units by mouth 1 (one) time each day Active eplerenone (INSPRA) 50 MG tabletIndication s:Stage 3b chronic kidney disease (HCC),Hypertensi on Take 1 tablet (50 mg total) by mouth 1 (one) time each day 90 tablet 3 5 01/01/20 26 Active Active Problems Problem Noted Date Diagnosed Date Arthropathy of spinal facet joint 01/06/2023 01/06/2023 Atherosclerosis of aorta 01/06/2023 023 Atrial fibrillation 01/06/2023 01/06/2023 Diverticular disease of colon 01/06/2023 Gastroesophageal reflux disease 01/06/2023 01/06/2023 Hemangioma of liver 01/06/2023 01/06/2023 Impingement syndrome of shoulder region 01/07/20 23 01/06/2023 Impotence of organic origin 01/06/202312/19 Neurogenic claudication [...] 12 am 30 12 am 100mg/dl 4hrs TOTAL 57.6u/day We discussed insulin pump adjustments today, in [...] Encounters Date Type Department Care Team Description 12/31/2024 9:30 AM EDT Office Visit [facility] [address] [phone] Jacqueline Mckenzie ARNP Stage 3b chronic kidney disease (HCC) (Primary Dx); Hypertension; Microalbuminuria; Nephrolithiasis from Last 3 Months Immunizations Immunization Administration Dates Next Due DTaP [...] Sign Reading Time Taken Comments Blood Pressure 150/78 12/31/2024 9:45 AM EDT Pulse 69 12/31/2024 9:45 AM EDT Temperature - - Respiratory Rate - - Oxygen Saturation 99% 12/31/2024 9:45 AM EDT Inhaled Oxygen Concentration - - Weight 68.3 kg (150 lb 9.6 oz) 12/31/2024 9:45 A M EDT Height - - Body Mass Index - - Plan of Treatment Upcoming Encounters Date Type Department Care Team (Late st Contact Info) Description 03/03/2025 9:45 AM EST Office Visit [facility] [address] [phone] Jacqueline Mckenzie ARNP [address] [phone] Health Maintenance Due Date Last Done Comments Colorectal Cancer Screening: Annual FOBT 2000 Colorectal Cancer Screening: Colonoscopy 2000 Colorectal Cancer Screening: Sigmoidoscopy 2000 Hepatitis B Vaccine (1 of 3 - Risk 3-dose series) 2011 Pneumococcal Vaccine: 50+ Ye ars (3 of 3 - PCV20 or PCV21) 03/14/2020 03/31/2017, 03/14/2015 Diabetes: Ophthalmology Exam 03/07/2022 Diabetes: Pedal Pulse Checked 03/07/2022 Diabetes: Sensory Foot Exam 03/07/2022 Diabetes: Visual Foot Exam 03/07/2022 Influenza Vaccine (#1) 2024 2, 12/24/2020, 12/24/2020, Additional history exists Diabetes: Hemoglobin A1C 03/17/2025 025, 03/04/2024, 12/09/2022, Additional history exists Procedures Procedure Name Priority Date/Time Associated Diagnosis Comments BASIC METABOLIC PANEL Routine 02/26/2025 6:23 PM EST Stage 3b chronic kidney disease (HCC) Hypertension from Last 3 Months Results * (ABNORMAL) Basic metabolic panel (02/26/2025 6:23 PM EST) Sodium 139 135 - 145 mmol/L See order comments Potassium 4.1 3.3 - 5.1 mmol/L See order comments Chloride 104 96 - 108 mmol/L See order comments Bicarbonate (CO2) 28 22 - 29 mmol/L See order comments Anion Gap 11(L) 12 - 20 See order comments BUN 37(H) 9 - 16 mg/dL See order comments Creatinine Serum 1.88(H) 0.5 - 1.4 mg/dL See order comments eGFR (Calc) 35 See orde r comments Comment: Chronic Kidney Disease: Estimated GFR < 60 mL/min/1.73m2 Severe Kidney Disease: Estimated GFR < 15 mL/min/1.73m2 Glucose 173(H) 60 - 115 mg/dL See order comments Calcium 9.1 8.4 - 10.2 mg/dL See order comments Blood Venous blood / Unknown 02/26/2025 6:23 PM EST 02/26/2025 6:23 PM EST Jacqueline SOLANO LAB BLOOD ORDERABLES Final Result [facility] See order comments [place] [address] from Last 3 Months Insurance Medicare [facility] Medicare [facility] Medicare [facility] Care Teams Whipper Relationship Specialty Start Date End Date Christy Darden NP [address] [place] [address] PCP - General Nurse Practitioner 02/28/22
--- OUTSIDE RECORDS SUMMARY | 2025-02-26 22:14 | XMS_ITS | Encounter Summary ---
Author Organization [facility], Address [address] [place] [address] Phone Care Team Providers Care Mortgage Consultant Name Role Phone Christy Daredn FOOD SERVICE AMBASSADOR Primary Care Provider Encounter Details Date Type Department Care Team (Late st Contact Info) Description 02/28/2022 Documentation Only [facility], [address] [place] [phone] Christy Darden, DAI [address] [place] [address] Social History Tobacco Use Types Packs/Day Years [...] Visit [facility] [address] [phone] Jacqueline Mckenzie ARNP [address] [phone] documented as of this encounter Visit Diagnoses Not on filedocumented in this encounter Care Teams Mortgage Consultant Relationship Specialty Start Date End Date Christy Darden NP [address] [place] [address] PCP - General Nurse Practitioner 02/28/22 documented as of this encounter
== END 2025-02-26 14:13 | disposition home or self-care (01) ==
LOC: HO.WFDLDS 14:12
PROVIDERS: Internal Medicine Nephrology; Visit Provider Internal Medicine Rheumatology
DX: I12.9 Hypertensive chronic kidney disease with stage 1 through stage 4 chronic kidney disease, or unspecified chronic kidney disease (principal); N18.32 Chronic kidney disease, stage 3b; Z79.899 Other long term (current) drug therapy
CPT/HCPCS: 36415; 80048; 80061; 82565; 84450; 84460; 85025; 85652; 86140